=== PATIENT | female | born 1925 | race Caucasian/White ===

== ENCOUNTER 2016-06-12 22:43 | Inpatient (IN) | payer MEDICARE ==
[~2016-06-12] VITALS: Ht 167.6 cm; Wt 117.6 kg
[2016-06-12 22:53] VITALS: BP 146/59; PULSE 61; RESP 16; O2SAT 90
--- NOTE | 2016-06-12 23:17 | ED.REPORT ---
HPI-General Illness Date of Service Jun 12, 2016 ED Provider: Adrian Maldonado MD An 89 year old female with a history of hyponatremia , HTN, chronic vesicular vaginal fistula, and asthma presents to the ED from [facility] via EMS complaining of confusion. Per EMS, the patient had a GLF earlier this evening. When asked where they are, the patient responds that they are at [place]. Per family, the patient has had a wet cough for the last week and has appeared more confused than usual. Per nurse note the patient also complains of dysuria. The patient denies any abdominal pain and denies any pain in general. Nursing Notes Stated Complaint: ACTING DIFFERENT THAN NORMAL Chief Complaint: General Complaint Nursing Notes Reviewed: Yes Allergies: Uncoded Allergies: BEES (Allergy, Severe, WELTS AND SWOLLEN LIPS, 06/12/16) PENICILLIN (Allergy, Unknown, 06/12/16) Scheduled Aspirin (Aspirin) 81 Mg Tablet 81 MG PO DAILY Atenolol (Atenolol) 50 Mg Tablet 50 MG PO DAILY Atorvastatin (Lipitor) 20 Mg Tablet 20 MG PO DAILY Levothyroxine (Levothyroxine) 150 Mcg Tablet 150 MCG PO DAILY Losartan Potassium (Losartan Potassium) 50 Mg Tablet 50 MG PO DAILY Scheduled PRN Furosemide (Furosemide) 20 Mg Tab 20 MG PO DAILY PRN PRN edema General Time Seen by MD: 23:17 Chief Complaint Other (confusion) Hx Obtained From: Patient, Other family..., EMS Arrived By: Ambulance Sudden in Onset?: No Onset Occurred: Onset unknown Symptom Duration: Duration unknown Severity: Current: Moderate Severity: Maximum: Moderate Recent Healthcare: No recent doctor visit Similar Sx Previous: No Past Medical History Past Medical History PNAx2 Reports: Asthma, Hypertension Past Surgical History KELSEY. BSO. Social History Lives at [facility]. Ambulatory Status Independent Review of Systems Denies any pain. Dysuria. Full Review of Systems GI: Denies: Abdominal pain Neurologic: Reports: Confusion Complete sys rev & neg: except as marked. Physical Exam Vital Signs Vital Signs Date Time Temp Pulse Resp B/P Pulse Ox O2 Delivery O2 Flow Rate FiO2 06/12/16 22:53 36.7 61 16 146/59 90 Room Air Initial VS: Reviewed General/Constitutional: Awake Patient is confused and not sure where they are. They think they are at [facility]. They are in mild distress. Head / Eyes: Normocephalic, No nystagmus ENT: Atraumatic, Mucous membranes moist Respiratory / Chest: No rales Chest is clear. Diminished breath sounds. Cardiovascular: Heart rate NL, Regular rhythm, Heart sounds NL, No gallop, No murmurs, No rubs Heart is unremarkable. Abdomen: No guarding, No rebound Skin: Warm, Dry Patient has chronic erythema and chronic edema, nothing acute. vesiculobladder vaginal fistula, and she is leaking. Neurologic: Speech NL Interpretation & Diagnostics Lab Results Interpretation Result Diagram: 06/12/16 2320 06/13/16 0435 Test 06/12/16 23:20 06/13/16 00:27 Osmolality 248 (275-300) Magnesium Level 1.6mg/dL (1.6-2.6) Total Bilirubin 0.4mg/dL (0.0-1.2) Aspartate Amino Transf (AST/SGOT) 20U/L (0-50) Alanine Aminotransferase (ALT/SGPT) 16U/L (0-32) Alkaline Phosphatase 52U/L (25-165) Troponin T 0.010ug/L (0.0-0.011) Pro-B-Type Natriuretic Peptide 226.2pg/mL (0-738) Total Protein 7.1g/dL (6.4-8.4) Albumin 3.8g/dL (3.4-5.0) Triglycerides Level 136mg/dL (0-149) Cholesterol Level 174mg/dL (100-199) LDL Cholesterol, Calculated 97.800mg/dL (0-99) VLDL Cholesterol 27.200mg/dL HDL Cholesterol 49mg/dL (>39) Cholesterol/HDL Ratio 3.55 (0.0-4.4) Thyroid Stimulating Hormone (TSH) 5.490uIU/mL (0.450-4.500) Hold Pyle Top Tube Received (Received) Urine Color [place] (YELLOW) Urine Appearance Slightly cloudy Urine pH Color interference Urine Specific Calcium 1.015 (1.003-1.035) Urine Protein Color interferencemg/dL Urine Glucose (UA) Color interferencemg/dL Urine Ketones Color interferencemg/dL Urine Occult Blood Color interference Urine Nitrite Color interference Urine Bilirubin Color interference Urine Urobilinogen Color interferencemg/dL Urine Leukocyte Esterase Color interference Urine RBC >50/hpf (0-2) Urine WBC 11-50/hpf (0-5) Urine Epithelial Cells Many/hpf (NONE-MOD) Urine Crystals None seen (NONE SEEN) Urine Bacteria Many/hpf (NONE-FEW) Urine Hyaline Casts None/lpf (NONE) Urine Granular Casts None seen (NONE SEEN) Urine Waxy Casts None seen (NONE SEEN) Urine Red Blood Cell Casts None seen (NONE SEEN) Urine White Blood Cell Casts None seen (NONE SEEN) Urine Mucus None seen (None Seen) Urine Trichomonas None seen (NONE SEEN) Urine Yeast None (NONE SEEN) Urinalysis Comment None Urine Culture Reflexed Indicated ECG Interpretation ECG Interpretation: Rate is 63. Sinus Rhythm. Time: 11:52 Interpreted by: ED physician X-Ray Chest Interpretation Chest Xray Interpretation: IMPRESSION: No Acute 06/12/2016, 2329 Interpretation / Wet Read by: Wet read ED physician CT Head Interpretation CONCLUSION: Atrophy with chronic small vessel ischemic changes. No acute intracranial abnormality. Signed by Rah Bonner M.D. 06/13/2016, 0022. Re-Eval/Medical Decision Med Decision/Clinical Course 89-year-old presents with altered mental status and is found to be markedly hyponatremic. Despite the cough, there is no particular evidence of pneumonia on the x-ray. She does have a history of asthma, and her cough is more likely related to bronchospasm than pneumonia. Admitted now for sodium replenishment and further evaluation. Confirmed DNR/DNI status with family. They do want readily reversible metabolic problems reversed, including antibiotics if need be. Source of Hx: Old records, EMS Time of Eval: 23:22 Re-Evaluation/Progress Note: Rechecked patient and explained plan to do tests. Time of Eval: 00:30 Re-Evaluation/Progress Note: Rechecked patient, explained test results, diagnosis, and plan for admission to the hospital. Patient understands and agrees with the plan. All questions addressed. Consultation : Referral / Consult Name: Artem De León MD Consulted With: Hospitalist Call Returned at: 00:34 Note: Discussed patient case with Dr. De León who confirms that remote Tely is ok. Counseled Regarding: Diagnosis, Lab results, Need for admission Discharge & Departure Shift Change Sign-Out Response to Therapy: Improved Primary Impression: Hyponatremia Additional Impression: Altered mental status Altered mental status type: delirium Qualified Code: R41.0 - Disorientation , unspecified Disposition: ADMITTED TO HOSPITAL Discharge Condition All VS Reviewed: Yes Condition: Improved Referrals: Vi Chapa MD (PCP) [facility] Scribe Attestation Portions of this note were transcribed by Porfirio England. Dr. Joel Cano personally performed the history, physical exam and medical decision-making; I reviewed and confirmed the accuracy of the information in the transcribed note. Signed by: Aly Ramirez, 06/13/2016616. copies to: [facility]; Vi Chaap MD, Christopher W MD Jun 12, 2016 23:17 Porfirio England Jun 12, 2016 23:23 Time of Eval: 00:30 Re-Evaluation/Progress Note: Rechecked patient, explained test results, diagnosis, and plan for admission to the hospital. Patient understands and agrees with the plan. All questions addressed. Consultation : Referral / Consult Name: Artem De León MD Consulted With: Hospitalist Call Returned at: 00:34 Note: Discussed patient case with Dr. De León who confirms that remote Tely is ok. Counseled Regarding: Diagnosis, Lab results, Need for admission Discharge & Departure Primary Impression: Hyponatremia Disposition: ADMITTED TO HOSPITAL Discharge Condition All VS Reviewed: Yes Condition: Improved Referrals: Vi Chapa MD (PCP) [facility]) Scribe Attestation Portions of this note were transcribed by Porfirio England. Dr. Joel Cano personally performed the history, physical exam and medical decision-making; I reviewed and confirmed the accuracy of the information in the transcribed note. Signed by: Aly Ramirez, 06/13/201617. copies to: [facility]; Vi Chapa MD, Christopher W MD Jun 12, 2016 23:17 Porfirio Engalnd Jun 12, 2016 23:23 Discharge & Departure Primary Impression: Hyponatremia Disposition: ADMITTED TO HOSPITAL Discharge Condition All VS Reviewed: Yes Condition: Improved Referrals: Vi Chapa MD (PCP) [facility]) Scribe Attestation Portions of this note were transcribed by Porfirio England. Dr. Joel Cano personally performed the history, physical exam and medical decision-making; I reviewed and confirmed the accuracy of the information in the transcribed note. Signed by: Aly Ramirez, 06/13/2016 0029. copies to: [facility]; Vi Chapa MD, Christopher W MD Jun 12, 2016 23:17 Porfirio England Jun 12, 2016 23:23
[2016-06-12 23:27] LABS: BASOPHILS % (AUTO) 0.4 % (0-3); EOSINOPHILS % (AUTO) 0.8 % (0-5); MONOCYTES % (AUTO) 10.3 % (4-12); Mean Corpuscular Hemoglobin 30.2 pg (27.0-35.0); NEUTROPHILS % (AUTO) 66.7 % (40-74); Platelet Count 277 bil/L (150-400)
[2016-06-13] VITALS (9 sets, daily range): BP systolic 133–185; BP diastolic 58–82; PULSE 56–70; RESP 14–22; O2SAT 91–96
[2016-06-13 00:23] LABS: TROPONIN T 0.01 ug/L (0.0-0.011)
[2016-06-13] MEDS ORDERED: 0.9% Sodium Chloride 1,000 ML IV ONE (00:35)
[2016-06-13] MEDS ORDERED: 0.9% Sodium Chloride 1,000 ML IV SCH ×3 (00:36→14:02)
[2016-06-13 00:37] LABS: APPEARANCE,URINE SLIGHTLY CLOUDY (CLEAR,HAZY); COLOR,URINE ORANGE (YELLOW); OCCULT BLOOD,URINE COLOR INTERFERENCE (NEGATIVE); PH,URINE COLOR INTERFERENCE (5.0-8.0); UROBILINOGEN,URINE COLOR INTERFERENCE mg/dL (NORMAL)
[2016-06-13] MEDS ORDERED: Ondansetron 2 mg/mL 2 mL Inj IVPUSH PRN ×2 (00:40)
[2016-06-13] MEDS ORDERED: Alum-Mag Hydrox-Simeth 30 mL Suspension PO PRN (00:40)
--- NOTE | 2016-06-13 01:43 | PCM.HPMED ---
Subjective Date of Service Jun 13, 2016 Primary Provider: Admitting Physician: Artem De León MD Primary Care Physician: Carey Martinez DO Attending Physician: Artem De León MD Admit Status: From the Emergency Department Chief Complaint: Altered mental status, generalized weakness History of Present Illness: Patient is an 89-year-old female with a history of colovaginal fistula with recurrent UTIs, hypertension, hyperlipidemia, hypothyroidism, depression and prior hyponatremia associated to hydrochlorothiazide who presented to the ED via EMS from [facility] with the complaint of worsening confusion and generalized weakness for past 1-2 weeks. History obtained from mostly from the patient's and son due to patient condition. Per the patient's she has had a persistent, non-productive cough for the past week and has been more confused than usual. He states that they were doing exercises at home earlier today when the patient had a ground level fall. He states that she has been eating and drinking okay but complaining of painful urination, increased urinary frequency and general malaise. Huy endorses multiple sick contacts recently between family and fellow residents at [place] but deny fever, chills, nausea, vomiting, diarrhea, hematuria or bloody stools. In the ED, vitals patient was afebrile with a temp 36.7C, BP 146/59, HR 61, RR 16, SpO2 90% on room air. Labs significant for sodium 115, potassium 4.4, chloride 76, bicarb 23, BUN 15, creatinine 0.65, serum glucose 128, calcium 9.1 , magnesium 1.6, negative troponin, proBNP 226.2. UA urine specific gravity 1.015, 11-50 wbc, many bacteria, color interference for pH/protein/glucose/ ketones/occult blood/nitrite/ and leukocyte esterace. Urine culture pending. EKG - NSR with rate 63. Chest Xray with no acute process, CT head showing atrophy with chronic small vessel ischemic changes, no acute intracranial abnormality. Review of Systems: A comprehensive review of systems was conducted with the patient and found to be negative except as above in the History of Present Illness Allergies Uncoded Allergies: BEES (Allergy, Severe, WELTS AND SWOLLEN LIPS, 06/12/16) PENICILLIN (Allergy, Unknown, 06/12/16) Home Medications Aspirin 81mg PO daily Atenolol 50mg PO daily Furosemide 20mg PO daily Levothyroxine 150mcg PO daily Losartan 50mg PO daily 0.4mg SL nitro q5min, prn for chest pain Albuterol 90mcg prn for shortness of breath PMH Pneumonia x2 Recurrent UTIs Asthma Hypertension Hyperlipidemia Hyponatremia Colovaginal fistula unknown etiology Benign cystadenoma left voary Depression Nonhodkins lyumpohma 2006 Hypothyroidism Surgical History Hysterectomy Unilateral salpingooopherectomy Appendectomy Tonsillectomy Adenoidectomy Mastoid surgery Knee replacement Carpal tunnel release Cataracts Family History Father- emphysema, stroke Mother stroke Social History Hx Alcohol Use: No Hx Substance Use: No Smoking Status: Never Smoker Living Arrangement: with Family Assisted Living Exam Vital Signs Vital Sign - Last Date Time Temp Pulse Resp B/P Pulse Ox O2 Delivery O2 Flow Rate FiO2 06/12/16 22:53 36.7 61 16 146/59 90 Room Air Intake and Output 06/12/16 06/12/16 06/13/16 Cumulative From/Thru 14:59 22:59 06:59 06/12/16 22:53 - 06/13/16 00:49 Intake Total 1000 ml 1000 ml Balance 1000 ml 1000 ml Intake IV Total 1000 ml 1000 ml Exam General: Elderly, ill-appearing female in no acute distress, cooperative but minimally interactive. HEENT: Normocephalic, atraumatic. PERRLA, conjunctivae pale, no scleral icterus. Oropharynx free of erythema and cobble stoning with dry mucosa. Neck: No jugular venous distension. No bruits. No lymphadenopathy or thyromegaly. Cardiovascular: Regular rate and rhythm with no murmurs, rubs, or gallops appreciated Pulmonary: Poor respiratory effort, lung sounds coarse but mostly clear to auscultation bilaterally with no crackles, wheezes, or rhonchi. Abdomen: Bowel tones present. Soft, obese, nontender, nondistended. No hepatosplenomegaly or masses appreciated. Extremities: Cool, dry, pulses equal and intact bilaterally. No clubbing, cyanosis, or edema Skin: Cool, decreased turgor, and normal texture; no rash, ulcers, or subcutaneous nodules appreciated. Neurological: Difficult to asses due to patient cooperation, somewhat somnolent but easily aroused. No focal neurological deficits. Lab and Diagnostics Labs Laboratory Tests Test 06/12/16 23:20 06/13/16 00:27 White Blood Count 7.1th/mm3 (3.8-10.1) Red Blood Count 4.01mil/mm3 (3.90-5.20) Hemoglobin 12.1g/dL (12.0-15.6) Hematocrit 34.9% (35.0-46.0) Mean Corpuscular Volume 87.0fL (81-100) Mean Corpuscular Hemoglobin 30.2pg (27.0-35.0) Mean Corpuscular Hemoglobin Concent 34.7% (32.0-37.0) Red Cell Distribution Width 12.1% (12.3-15.4) Platelet Count 277bil/L (150-400) Neutrophils (%) (Auto) 66.7% (40-74) Lymphocytes (%) (Auto) 21.2% (14-46) Monocytes (%) (Auto) 10.3% (4-12) Eosinophils (%) (Auto) 0.8% (0-5) Basophils (%) (Auto) 0.4% (0-3) Sodium Level 115mEq/L (134-144) Potassium Level 4.4mEq/L (3.5-5.2) Chloride Level 76mEq/L (97-108) Carbon Dioxide Level 23mmol/L (18-29) Blood Urea Nitrogen 15mg/dL (8-27) Creatinine 0.65mg/dL (0.57-1.00) Estimat Glomerular Filtration Rate 123mL/min (>59) Glucose Level 128mg/dL (60-99) Osmolality 248 (275-300) Calcium Level 9.1mg/dL (8.5-10.1) Magnesium Level 1.6mg/dL (1.6-2.6) Total Bilirubin 0.4mg/dL (0.0-1.2) Aspartate Amino Transf (AST/SGOT) 20U/L (0-50) Alanine Aminotransferase (ALT/SGPT) 16U/L (0-32) Alkaline Phosphatase 52U/L (25-165) Troponin T 0.010ug/L (0.0-0.011) Pro-B-Type Natriuretic Peptide 226.2pg/mL (0-738) Total Protein 7.1g/dL (6.4-8.4) Albumin 3.8g/dL (3.4-5.0) Triglycerides Level 136mg/dL (0-149) Cholesterol Level 174mg/dL (100-199) LDL Cholesterol, Calculated 97.800mg/dL (0-99) VLDL Cholesterol 27.200mg/dL HDL Cholesterol 49mg/dL (>39) Cholesterol/HDL Ratio 3.55 (0.0-4.4) Thyroid Stimulating Hormone (TSH) 5.490uIU/mL (0.450-4.500) Hold Pyle Top Tube Received (Received) Urine Color [place] (YELLOW) Urine Appearance Slightly cloudy Urine pH Color interference Urine Specific [place] 1.015 (1.003-1.035) Urine Protein Color interferencemg/dL Urine Glucose (UA) Color interferencemg/dL Urine Ketones Color interferencemg/dL Urine Occult Blood Color interference Urine Nitrite Color interference Urine Bilirubin Color interference Urine Urobilinogen Color interferencemg/dL Urine Leukocyte Esterase Color interference Urine RBC >50/hpf (0-2) Urine WBC 11-50/hpf (0-5) Urine Epithelial Cells Many/hpf (NONE-MOD) Urine Crystals None seen (NONE SEEN) Urine Bacteria Many/hpf (NONE-FEW) Urine Hyaline Casts None/lpf (NONE) Urine Granular Casts None seen (NONE SEEN) Urine Waxy Casts None seen (NONE SEEN) Urine Red Blood Cell Casts None seen (NONE SEEN) Urine White Blood Cell Casts None seen (NONE SEEN) Urine Mucus None seen (None Seen) Urine Trichomonas None seen (NONE SEEN) Urine Yeast None (NONE SEEN) Urinalysis Comment None Urine Culture Reflexed Indicated Microbiology 06/13/16 Urine Culture, Received Pending Result Diagram: 06/12/16 2320 06/12/16 2320 Microbiology Urine culture pending X-Rays, CTs and MRIs Chest Xray (06/13/16)- No Acute cardiopulmonary process. Official radiology read pending at time of admission. CT HEAD (06/13/16)- CONCLUSION: Atrophy with chronic small vessel ischemic changes. No acute intracranial abnormality. Signed by Rah Bonner M.D. 06/13/2016, 0022. 12-lead ECG NSR with rate 63, no acute ST changes. Assessment & Plan 89 y/o female with a history of colovaginal fistula with recurrent UTIs, hypertension, hyperlipidemia, hypothyroidism, depression and prior hyponatremia associated to hydrochlorothiazide who presented to the ED via EMS from [facility] with the complaint of confusion and generalized weakness. Admitted for hyponatremia, altered mental status and UTI. 1. Hyponatremia, unknown chronicity, present on admission. Active. -Sodium 115, pt clinically appears hypovolemic. CT head showing atrophy and chronic small vessel ischemic changes, no cerebral edema. Likely secondary to dehydration, UTI, and diuretic use. -Serum osmolality is low, 248 and BUN to creatinine ratio < 20:1 at 18.9 -Urine osmolality and urine sodium, are pending. -TSH 5.49, pt w/hx of hypothyroidism on levothyroxine. -Lipid panel unremarkable -Continue IVFs, serial BMPs q4h -Hold home furosemide duet to active fluid resuscitation 2. Altered mental status, present on admission. Active. -Likely secondary to #[address] head w/o acute intracranial abnormality. -Continue IVFs as above, and antibiotics -Urine studies including osmolality, sodium and culture pending. 3. Probable UTI, present on admission, Active. -Pt with hx of colovaginal fistula of unknown etiology and recurrent UTIs. Formerly on daily prophylactic Bactrim. Not on antibiotics now but per the family has been taking pyridium and endorse severe dysuria. -UA in the ED significant for 11-50 wbc, many bacteria, and color interference for pH/protein/glucose/ketones/occult blood/nitrite/ and leukocyte esterace -Urine culture pending -Start IV ceftriaxone -IV morphine 1mg q6h prn for pain 4. Chronic hypertension, present on admission. Active. -Hypertensive on admission with SBP in the 140s-low 180s, likely secondary to pain and hypovolemia. -Continue home atenolol, aspirin -Held Losartan for #1 -Hold furosemide due to active fluid resuscitation 5. Chronic hyperlipidemia, present on admission. Presumed stable. -Pt not taking statin -Lipid panel unremarkable 6. Chronic hypothyroidism, present on admission. Presumed stable. -Check TSH, free T4 -Continue home levothyroxine, reevaluate pending lab results 7. Hx of Asthma, present on admission. Presumed stable -Continue home albuterol prn 8. Hx of depression, present on admission. Presumed stable. -Difficult to asses secondary to patient's altered mental status -Per the family, patient not currently taking medication and mood stable. -Continue to monitor. PRN: Acetaminophen-fever/headache/mild/moderate pain Antiemetics, as needed Bowel regimen, as needed. Disposition: Patient admitted under inpatient status with expected length of stay > 2 midnights for severity of present symptoms, complexities of treatment plan and risk for adverse event Pain Evaluation: Adequate Pain Control GI Prophylaxis: Not indicated VTE Prophylaxis Indicated: Meets Criteria for Anticoag Therapy VTE Prophylaxis: Sub-Q Enoxaparin Resuscitation Status: DNR/DNI:Do Not Resuscitate/Intubate Attending Statement The patient was seen and examined together with Dr. Cortés on 06/13/2016 and I agree with the history, exam and plan as outlined in the note above. Devika Cortés DO Jun 13, 2016 01:43 Artem De León MD Jun 13, 2016 05:24 VTE Prophylaxis: Sub-Q Enoxaparin Resuscitation Status: DNR/DNI:Do Not Resuscitate/Intubate Devika Cortés DO Jun 13, 2016 01:43
[2016-06-13] MEDS ORDERED: ASPI-973 PO (02:03)
[2016-06-13] MEDS ORDERED: ATEN50TA PO (02:03)
[2016-06-13] MEDS ORDERED: LOSA50TA37 PO (02:03)
[2016-06-13] MEDS ORDERED: FUR20 PO (02:07)
[2016-06-13] MEDS ORDERED: LEVO150T5 PO (02:07)
[2016-06-13] MEDS ORDERED: ATOR20TA PO (02:07)
[2016-06-13] MEDS ORDERED: HYDROmorphone 0.5 mg/0.5 mL iSecure Syringe IVPUSH ONE (03:15)
[2016-06-13 05:22] LABS: OSMOLALITY, URINE 163 mOs/kH2O (250-1200)
--- NOTE | 2016-06-13 05:29 | NUR ---
Admit Pt arrived to [facility] room 1025 from ER at 0150. Pt moved with slider board to bed. NS bolus from ER finishing through IV. Pt alert/oriented x2 not to time or place. Pt on RA, CPOx placed with O2 sats 94%. Admission questions completed with as pt is somewhat confused, very NULATO. Med rec completed with med containers (family to take containers home). Breanna alarm placed for high fall risk. UA collected via straight cath since pt has been incontinent, urine is orange d/t pyridium. Straight cath drained 600 ml of orange urine. Pt complaining of vaginal pain but unable to give pain a number, 5 on feldt score. paged and pt was given 0.5 mg IV dilaudid very slowly over 10 min. MD also made aware of increased BP 170/62 and contributed mostly to pain, BP this am was 133/58. Pt has been restless and turning self in bed. Nasal micro influenza and Viral resp PCR sent, Pt placed on droplet precaution due to rule out and active cough. Continue close monitoring. Addendum: 06/13/16 at 0730 by GLENN ZAMUDIO RN made aware of critical sodium levels 118 at 0550.
[2016-06-13] MEDS: cefTRIAXone Inj 1,000 MG in Dextrose 5% Minibag Plus 50 ML IV SCH (05:44)
[2016-06-13] MEDS: Nystatin 100,000 Unit/Gm 15 Gm Powder TOPICAL SCH ×3 (05:45→20:30)
[2016-06-13 07:27] LABS: BASOPHILS % (AUTO) 0.3 % (0-3); EOSINOPHILS % (AUTO) 2.6 % (0-5); Mean Corpuscular Hemoglobin 30.7 pg (27.0-35.0); Mean Corpuscular Volume 85.2 fL (81-100); Platelet Count 227 bil/L (150-400)
--- NOTE | 2016-06-13 07:59 | DRSVH ---
PROCEDURE: X-RAY CHEST ONE VIEW, PORTABLE ([id number]) INDICATIONS: cough/wheezy, CONFUSION TECHNIQUE: One view of the chest was acquired. COMPARISON: [facility], CR, XR CHEST 2VW, 03/15/2016, 15:35. FINDINGS: Surgical changes and devices: None. Lungs and pleura: No pleural effusions or pneumothorax. Lungs are clear. Diffuse interstitial dise ase and scarring, without definite interval change Mediastinum: Mediastinal contours appear normal. Heart size is normal. Bones and chest wall: No suspicious bony lesions. Overlying soft tissues appear unremarkable. IMPRESSION: No acute disease. Diffuse/interstitial changes as before. Dictated by: Chinedu Hendricks M.D. on 06/13/2016 at 7:57 Approved by: Chinedu Hendricks M.D. on 06/13/2016 at 7:58
--- NOTE | 2016-06-13 08:05 | DRSVH ---
PROCEDURE: CT BRAIN WITHOUT CONTRAST ([id number]) INDICATIONS: altered mental status TECHNIQUE: Noncontrast 4.5 mm thick angled axial sections acquired from the foramen magnum to the vertex, with c oronal reformats. COMPARISON: None. FINDINGS: Image quality: Excellent. CSF spaces: Basal cisterns are patent. No extra-axial fluid collections. The ventricles are symmet chalo in size and shape. Brain: No intracranial bleeds or masses. There is moderate cerebral volume loss for age, with resul tant ventricular and sulcal prominence. There are moderate to severe periventricular and deep white matter chronic small vessel ischemic changes. There is intracranial internal carotid artery atherosc lerosis. Skull and face: Calvarium and visualized facial bones appear intact, without suspicious lesions. Po ssible left inner ear surgery. Sinuses: Visualized sinuses and mastoids are clear. IMPRESSION: 1. No acute intracranial abnormalities. 2. Cerebral volume loss and chronic microvascular ischemic changes. No significant discrepancy with the assistant shift supervisor radiology preliminary report. Dictated by: Chata Fields M.D. on 06/13/2016 at 8:01 Approved by: Chata Fields M.D. on 06/13/2016 at 8:04
--- NOTE | 2016-06-13 08:06 | NUR ---
Respiratory virus Microbiology called at 0804 hrs to inform me that pt is positive for metapneumovirus. Cook page sent to hospitalist to convey this information.
--- NOTE | 2016-06-13 08:38 | NUR ---
Sodium level Lab called at 0825 to inform me that pt's Na+ is 119 this a.m. Arjun page sent to hospitalist with this information.
--- NOTE | 2016-06-13 12:45 | NUR ---
Activity / Pain Pt was able to get up to the bathroom using a FWW with assistance this a.m. Later pt c/o low back pain that was 8/10. Administered 1 mg IVP morphine and assisted pt onto her left side. Pt stated this helped and her pain was almost completely gone. Care continues.
--- NOTE | 2016-06-13 13:22 | NUR ---
Sodium level Lab called with new serum Na+ results of 118 at 1318 hrs. Cook page sent to hospitalist with this information.
--- NOTE | 2016-06-13 15:46 | NUR ---
Lost IV access Was called to pt's room at approximately 1530 because pt had pulled out her IV and pulled off her pulse oximeter and gown as well. Pt confused. Reoriented pt. RADIO STATION MANAGER changed the bed, to the pt to the toilet,and gave pt a bed bath. Pt returned to bed. Piatt alarm on for safety. Care continues. Addendum: 06/13/16 at 1626 by AYAKA MILLER RN Two unsuccessful attempts made to restart pt's IV. Called IV therapy for assistance.
[2016-06-13] MEDS ORDERED: Lidocaine 1%-Epi 1:100,000 20 mL Inj ONE (16:11)
--- NOTE | 2016-06-13 16:25 | NUR ---
Social Work-attempted initial assessment: Data:EMR Reviewed. Pt is a 89 y/o female who was admitted on 06/13/16 for altered mental status per H&P. Pt's insurance is [facility] and [employer] and PCP is oHpe Martinez DO. EMR Reviewed. Pt's readmission score is 4-high risk. Pt comes from [place] assisted living. SW attempted to see pt at bedside, Pt requested to have SW call her . SW attempted to reach , no answer. SW to follow up again tomorrow. Assessment:pt who resides at [facility]. Plan:SW to follow up with assessment tomorrow. Pt resides at [facility]. SW will continue to follow. CHELSEA You
[2016-06-13] MEDS: 0.9% Sodium Chloride 1,000 ML IV SCH (21:00)
--- NOTE | 2016-06-14 02:52 | NUR ---
PAIN/ACTIVITY: Early during first assessment pt. c/o back pain. Medicated with 1 mg of IV Morphine, helpful, no other c/o pain. Pt. has been up to the bathroom several times tonight to void. No BM yet. Pt. is a high risk for falling, has the Breanna alarm on and the bed alarm on as well. Needs one person assist and the FWW for ambulation, unsteady on her feet. Pt. does not call for assist. Does not know how to use the call light. Alert but forgetful. Refused to wear her hospital gown during the night. No other issues. On going care.
[2016-06-14] MEDS: cefTRIAXone Inj 1,000 MG in Dextrose 5% Minibag Plus 50 ML IV SCH (04:37)
[2016-06-14 05:02] VITALS: BP 173/72; PULSE 80; RESP 20; O2SAT 94
[2016-06-14] MEDS: Albuterol-Ipratropium 3 mL Inhalation Solution NEB PRN ×2 (05:14→08:05)
[2016-06-14 05:16] VITALS: PULSE 85; RESP 18; O2SAT 94
[2016-06-14 08:07] VITALS: PULSE 82; RESP 20; O2SAT 94
[2016-06-14] MEDS: Nystatin 100,000 Unit/Gm 15 Gm Powder TOPICAL SCH ×2 (09:11→20:30)
[2016-06-14] MEDS: 0.9% Sodium Chloride 1,000 ML IV SCH ×2 (09:50→23:16)
[2016-06-14 12:57] VITALS: BP 167/60; PULSE 72; RESP 18; O2SAT 96
--- NOTE | 2016-06-14 13:22 | PCM.PNMED ---
Subjective Date of Service Jun 14, 2016 Subjective Pt remains confused today. She also complains of weakness. No other complaints or concerns at this time. Exam Vital Signs Vital Sign - Last Date Time Temp Pulse Resp B/P Pulse Ox O2 Delivery O2 Flow Rate FiO2 06/14/16 12:57 36.1 72 18 167/60 96 Room Air Intake and Output 06/13/16 06/13/16 06/14/16 Cumulative From/Thru 15:00 23:00 07:00 06/12/16 22:53 - 06/14/16 05:56 Intake Total 1334 ml 400 ml 2734 ml Output Total 500 ml 1245 ml 3380 ml Balance 834 ml -845 ml -646 ml Intake Oral 580 ml 400 ml 980 ml IV Total 754 ml 1754 ml Output Urine Total 500 ml 1245 ml 3380 ml # Bowel Movements 0 0 Exam GENERAL: NAD, Pt laying in bed comfortably HEENT: AT/NC, PERRLA, EOMI, Mucus Membranes are moist CARDIAC: RRR; No M/R/G PULM: CTAB; No wheezes or rhonchi bilaterally ABD: Soft, Nontender, Nondistended, Positive bowel sounds in all quadrants, No Hepatosplenomegaly appreciated EXT: No C/C/E; No calf tenderness bilaterally SKIN: Warm, Dry, [place], and Intact NEURO: Alert and oriented x1; Following some commands PSYCH: Normal mood and affect IVs and Medications Medications Reviewed: Medications were reviewed in detail Lab and Diagnostics Result Diagram: 06/13/16 0710 06/13/162104 Microbiology Urine culture pending X-Rays, CTs and MRIs Chest Xray (06/13/16)- No Acute cardiopulmonary process. Official radiology read pending at time of admission. CT HEAD (06/13/16)- CONCLUSION: Atrophy with chronic small vessel ischemic changes. No acute intracranial abnormality. Signed by Rah Bonner M.D. 06/13/2016, 0022. 12-lead ECG NSR with rate 63, no acute ST changes. Assessment & Plan 89 y/o female with a history of colovaginal fistula with recurrent UTIs, hypertension, hyperlipidemia, hypothyroidism, depression and prior hyponatremia associated to hydrochlorothiazide who presented to the ED via EMS from [facility] with the complaint of confusion and generalized weakness. Admitted for hyponatremia, altered mental status and UTI. 1. Hyponatremia, unknown chronicity, present on admission. Active. - Secondary to Hypovolemia - Continue IV Normal Saline for now - Continue to hold Lasix - Repeat BMP - Consider Nephrology consultation depending on next BMP 2. Altered Mental Status - Secondary to acute UTI and Hyponatremia - Treat underlying cause - Monitor closely 3. Acute UTI - Urine culture positive for Klebsiella - Continue IV Rocephin 2 grams daily 4. Essential Hypertension - Continue home Atenolol 5. Hyperlipidemia - Continue home statin therapy 6. Hypothyroidism - Thyroid function normal - Continue Levothyroxine at current dose GI Prophylaxis: Not indicated VTE Prophylaxis: Sub-Q Enoxaparin VTE Mechanical Devices: Intermittant Pneumatic CD Resuscitation Status: DNR/DNI:Do Not Resuscitate/Intubate Ash Bradshaw MD Jun 14, 2016 13:22
--- NOTE | 2016-06-14 15:56 | NUR ---
Social Work- Initial Assessment Data: See Initial Assessment. Pt is a 89 year old female admitted for altered mental status, hyponatremia per H&P. Pt's insurance is [employer] and [employer]. Pt's PCP is Carey Martinez DO. LEIGH spoke with pt at bedside regarding discharge plan, SW role explained. Pt is alert and oriented to date and time, pt is hard of hearing. Pt complaining of "near 10/10" back pain, requested SW alert RN and call her DPOA. SW called DPOA and son Moise who is very involved in pt's care. SW completed the assessment by phone. Pt resides at [facility] with her who assists her with medication management, meals, chores. Pt has [employer] caregiver who comes once per week to assist with showering. [place] walker at [place], does not drive. Pt has no HH or SNF history. Pt's son states that she may have LTC benefits, will follow up with SW. Pt's DPOA on file is peg [employer], . Son requesting quote for [facility] transportation back to [place] at discharge, as pt's does not drive and son has a very high trunk that pt cannot get into. SW to follow up with this quote. Pt to discharge home to [facility] via private pay cabulance. SW will continue to follow. Assessment: Pt who resides in Independent Living and receives assistance from family and bath aide. Plan: Pt to discharge home to [place] [facility] via private pay cabulance. SW to follow up regarding [facility] quote. SW will continue to follow. CHELSEA Fiore Addendum: 06/14/16 at 1556 by JESSICA CRABTREE Amended: Links added.
--- NOTE | 2016-06-14 18:43 | DRSVH ---
PROCEDURE: CT LUMBAR SPINE WITHOUT CONTRAST ([id number]) INDICATIONS: worsening pain TECHNIQUE: Noncontrast 3 mm thick sections acquired from the T12 level to the sacrum. Sagittal and coronal refo rmats were constructed. For radiation dose reduction, the following was used: automated exposure co ntrol. COMPARISON: None. FINDINGS: Image quality: Excellent. Bones: There is grade 1 anterolisthesis of L4 on L5 measuring 3 mm. There is minimal retrolisthesis at L1-L2. No acute vertebral body compression fractures. No suspicious lytic or blastic bony lesion s. Central spinal caliber is of normal overall caliber. No pars defects. There is joint space narr owing along the visualized sacroiliac joints with osteophytosis, subchondral cystic changes, and poonam articular sclerosis. T12-L1: Mild to moderate loss of disc height with a small broad-based disc bulge. There is associate d minimal spinal canal narrowing. There is likely mild right neuroforaminal narrowing with evaluatio n limited on CT. L1-L2: The jaev-mf-gxnthiuo loss of disc height with a small broad-based disc bulge. There is minima l spinal canal narrowing and minimal bilateral neuroforaminal narrowing. L2-L3: Moderate loss of disc height posteriorly with a small broad-based disc bulge. There is mild f acet arthropathy. Findings contribute to mild spinal canal narrowing with mild bilateral neuroforami nal narrowing. L3-L4: Okei-ji-aujyapez loss of disc height with a small broad-based disc bulge. There is mild facet arthropathy as well as ligamentum flavum hypertrophy. The findings contribute to mild spinal canal narrowing with mild bilateral neuroforaminal narrowing. L4-L5: Dtmn-mt-mhhejmdn loss of disc height with vacuum disc phenomenon and a small disc bulge. Ther e is moderate facet arthropathy as well as mild ligamentum flavum hypertrophy. The findings contribu te to moderate spinal canal narrowing with mild to moderate bilateral neuroforaminal narrowing. L5-S1: Moderate loss of disc height with vacuum disc phenomenon and a smaller broad-based disc bulge. There is mild facet arthropathy. There is minimal spinal canal narrowing with severe bilateral christie roforaminal narrowing, right greater than left. Soft tissues: No retroperitoneal masses or hematomas. Visualized aorta is normal in caliber. There is chronic diverticulosis within the visualized colon. IMPRESSION: 1. Multilevel degenerative changes in the lumbar spine as described including severe bilateral neuro foraminal narrowing at L5-S1. Bcfm-jy-whftmfhy bilateral narrowing also demonstrated at L4-5. 2. Multilevel spinal canal narrowing including moderate narrowing at L4-5. 3. Grade one anterolisthesis at L4-5. 4. Bilateral sequelae of sacroiliitis, left greater than right. Dictated by: Ottoniel Arias M.D. on 06/14/2016 at 18:28 Approved by: Ottoniel Arias M.D. on 06/14/2016 at 18:42
--- NOTE | 2016-06-14 19:46 | NUR ---
Back pain Pt c/o back pain throughout day shift. PO Tylenol given q 6hrs. When pt c/o pain 10/10, IV Morphine was given, which lowered her pain to 5/10 and made her drowsy but did not eliminate pain. Pt did report some relief being in the chair versus the bed. MD notified of persistent pain and CT of back was ordered. Awaiting results. MD aware of continued pain and DC'd Morphine to prevent AMS.
[2016-06-14 20:34] VITALS: BP 143/74; PULSE 68; RESP 20; O2SAT 94
--- NOTE | 2016-06-15 01:06 | NUR ---
Back pain Patient continues to complain of back pain at the beginning of shift. K pad has been ordered in hopes to relieve some of the pain. MD notified of this. No additional orders at this time. Before K pad could be set up and applied, patient was asleep and appeared comfortable. Will continue to monitor, and assess need for Tylenol PO and K pad for pain. Addendum: 06/15/16 at 0502 by CAROL QUINTANILLA RN As the night progressed patient started to wake up more frequently complaining of back pain. PO tylenol was given and upon reassessment patient was sleeping and appeared comfortable. However, patient continues to wake frequently complaining of back pain, then shortly after falls back to sleep. Will share this with day shift, in hopes for a medication regimen change.
[2016-06-15 04:45] VITALS: BP 173/71; PULSE 62; RESP 18; O2SAT 96
[2016-06-15] MEDS: cefTRIAXone Inj 1,000 MG in Dextrose 5% Minibag Plus 50 ML IV SCH (04:53)
[2016-06-15 09:00] LABS: BASOPHILS % (AUTO) 0.4 % (0-3); EOSINOPHILS % (AUTO) 1.3 % (0-5); MONOCYTES % (AUTO) 10.9 % (4-12); Mean Corpuscular Hemoglobin 30.5 pg (27.0-35.0); Mean Corpuscular Volume 88.6 fL (81-100); NEUTROPHILS % (AUTO) 54.2 % (40-74); Platelet Count 270 bil/L (150-400)
[2016-06-15] MEDS: Nystatin 100,000 Unit/Gm 15 Gm Powder TOPICAL SCH ×2 (11:50→20:30)
--- NOTE | 2016-06-15 12:08 | PCM.PNMED ---
Subjective Date of Service Jun 15, 2016 Subjective Pt states she is feeling much better this morning and her son, whom is at bedside reports his mother appears more like her normal self today. Pt states she continues to feel weak, but this is improved overall and her son reports her mentation is almost back to baseline. No other complaints or concerns at this time. Exam Vital Signs Vital Sign - Last Date Time Temp Pulse Resp B/P Pulse Ox O2 Delivery O2 Flow Rate FiO2 06/15/16 04:45 36.2 62 18 173/71 96 Room Air Intake and Output 06/14/16 06/14/16 06/15/16 Cumulative From/Thru 15:00 23:00 07:00 06/12/16 22:53 - 06/15/16 06:40 Intake Total 1037 ml 893 ml 4664 ml Output Total 825 ml 1025 ml 5230 ml Balance 212 ml -132 ml -566 ml Intake Oral 268 ml 400 ml 1648 ml IV Total 769 ml 493 ml 3016 ml Output Urine Total 825 ml 1025 ml 5230 ml # Bowel Movements 0 0 0 Exam GENERAL: NAD, Pt laying in bed comfortably HEENT: AT/NC, PERRLA, EOMI, Mucus Membranes are moist CARDIAC: RRR; No M/R/G PULM: CTAB; No wheezes or rhonchi bilaterally ABD: Soft, Nontender, Nondistended, Positive bowel sounds in all quadrants, No Hepatosplenomegaly appreciated EXT: No C/C/E; No calf tenderness bilaterally SKIN: Warm, Dry, [place], and Intact NEURO: Alert and oriented x2-3; Following all commands PSYCH: Normal mood and affect IVs and Medications Medications Reviewed: Medications were reviewed in detail Lab and Diagnostics Result Diagram: 06/15/16 0856 06/15/16 0856 Microbiology Urine culture pending X-Rays, CTs and MRIs Chest Xray (06/13/16)- No Acute cardiopulmonary process. Official radiology read pending at time of admission. CT HEAD (06/13/16)- CONCLUSION: Atrophy with chronic small vessel ischemic changes. No acute intracranial abnormality. Signed by Rah Bonner M.D. 06/13/2016, 0022. 12-lead ECG NSR with rate 63, no acute ST changes. Assessment & Plan 89 y/o female with a history of colovaginal fistula with recurrent UTIs, hypertension, hyperlipidemia, hypothyroidism, depression and prior hyponatremia associated to hydrochlorothiazide who presented to the ED via EMS from [facility] with the complaint of confusion and generalized weakness. Admitted for hyponatremia, altered mental status and UTI. 1. Hyponatremia, unknown chronicity, present on admission. Active. - Improving - Secondary to Hypovolemia - Continue IV Normal Saline for now, but will increase rate to 100 mL/hour - Continue to hold Lasix - Repeat BMP in AM 2. Altered Mental Status - Resolving - Secondary to acute UTI and Hyponatremia - Treat underlying cause - Monitor closely 3. Acute UTI - Urine culture positive for Klebsiella - Continue IV Rocephin 2 grams daily 4. Essential Hypertension - Well controlled - Continue home Atenolol 5. Hyperlipidemia - Continue home statin therapy 6. Hypothyroidism - Thyroid function normal - Continue Levothyroxine at current dose 7. Disposition - Anticipate discharge to home in the next 2-3 days GI Prophylaxis: Not indicated VTE Prophylaxis: Sub-Q Enoxaparin VTE Mechanical Devices: Intermittant Pneumatic CD Resuscitation Status: DNR/DNI:Do Not Resuscitate/Intubate Ash Bradshaw MD Jun 15, 2016 12:08
[2016-06-15] MEDS: 0.9% Sodium Chloride 1,000 ML IV SCH ×3 (12:30→22:30)
[2016-06-15 14:59] VITALS: BP 186/81; PULSE 62; RESP 16; O2SAT 99
--- NOTE | 2016-06-15 15:18 | NUR ---
Social Work- Continued D/C Planning Data: EMR reviewed. Pt is on day 2 of hospitalization for altered mental status, hyponatremia per H&P. Pt is not medically stable, anticipate 1-2 more days. Pt's sodium levels continue to be monitored. SW followed up with pt's son Moise regarding [facility] quote for transportation back to [facility], SW left message. Quote is approximately $55. SW to follow up with son again regarding quote when pt is nearing discharge. No other discharge needs anticipated. Pt to discharge home via private pay cabulance and return home with private pay caregiving when medically stable. SW will continue to follow. Assessment: Pt who has private pay caregiving and family support at home. Plan: SW to update son again of private pay cabulance quote as patient nears discharge. Pt to discharge home via private pay cabulance and return home with private pay caregiving when medically stable. SW will continue to follow. CHELSEA Fiore
--- NOTE | 2016-06-15 17:13 | NUR ---
BP/Activity/Pain Pt with elevated BP of 186/81 this afternoon. notified. Home BP medications resumed. Pt encouraged to ambulated today and has walked two loops around unit. Cough has decreased and back pain has improved. Using recliner to help with foot swelling and back discomfort. Pain adequately controlled with PO Tylenol today.
[2016-06-15 20:10] VITALS: BP 158/63; PULSE 51; RESP 17; O2SAT 94
[2016-06-16 03:44] VITALS: PULSE 62; RESP 20; O2SAT 98
[2016-06-16] MEDS: 0.9% Sodium Chloride 1,000 ML IV SCH ×2 (05:08→18:34)
[2016-06-16] MEDS: cefTRIAXone Inj 1,000 MG in Dextrose 5% Minibag Plus 50 ML IV SCH (05:08)
[2016-06-16 05:45] VITALS: BP 148/66; PULSE 55; RESP 17; O2SAT 95
--- NOTE | 2016-06-16 05:47 | NUR ---
BP/Pain Pt BP improved this shift- 158/63 Pt was crying early in shift, stating her back was "killing her" and rated pain 10/10. Pt was up in chair. Got Pt back to bed, gave PRN tylenol and repositioned with KPad. Pt continued to say she was hurting, requesting pain meds and was crying. Contacted MD and rec'd new order for morphine 2mg IV Q4hrs. Pt rec'd with + effects, able to rouse easily and continued at baseline A/O x2. Pt able to sleep. Pt woke up, using call light to make needs known, ambulated to and tolerated well. PRN morphine given 1 additional time this shift with + effects. IV fluids infusing 100 ml/hr
[2016-06-16 06:46] LABS: BASOPHILS % (AUTO) 0.6 % (0-3); MONOCYTES % (AUTO) 14.3 % (4-12); Mean Corpuscular Hemoglobin 30.7 pg (27.0-35.0); NEUTROPHILS % (AUTO) 40.6 % (40-74); Platelet Count 228 bil/L (150-400)
[2016-06-16 09:09] VITALS: PULSE 58; RESP 20; O2SAT 94
[2016-06-16] MEDS: Nystatin 100,000 Unit/Gm 15 Gm Powder TOPICAL SCH ×2 (09:22→19:55)
--- NOTE | 2016-06-16 10:46 | PCM.PNMED ---
Subjective Date of Service Jun 16, 2016 Subjective Pt states she is "feeling better" today. She has no complaints or concerns at this time. Pt states her weakness is improved. She denies any dysuria or urinary urgency or frequency at present. Exam Vital Signs Vital Sign - Last Date Time Temp Pulse Resp B/P Pulse Ox O2 Delivery O2 Flow Rate FiO2 06/16/16 09:09 58 20 94 Room Air 06/16/16 05:45 36.4 148/66 Intake and Output 06/15/16 06/15/16 06/16/16 Cumulative From/Thru 15:00 23:00 07:00 06/12/16 22:53 - 06/16/16 06:28 Intake Total 1684 ml 1042 ml 7390 ml Output Total 850 ml 750 ml 6830 ml Balance 834 ml 292 ml 560 ml Intake Oral 800 ml 400 ml 2848 ml IV Total 884 ml 642 ml 4542 ml Output Urine Total 850 ml 750 ml 6830 ml # Bowel Movements 0 0 Exam GENERAL: NAD, Pt laying in bed comfortably HEENT: AT/NC, PERRLA, EOMI, Mucus Membranes are moist CARDIAC: RRR; No M/R/G PULM: CTAB; No wheezes or rhonchi bilaterally NEURO: Alert and oriented x2-3; Following all commands PSYCH: Normal mood and affect IVs and Medications Medications Reviewed: Medications were reviewed in detail Lab and Diagnostics Result Diagram: 06/16/16 0600 06/16/16 0600 Microbiology Urine culture pending X-Rays, CTs and MRIs Chest Xray (06/13/16)- No Acute cardiopulmonary process. Official radiology read pending at time of admission. CT HEAD (06/13/16)- CONCLUSION: Atrophy with chronic small vessel ischemic changes. No acute intracranial abnormality. Signed by Rah Bonner M.D. 06/13/2016, 0022. 12-lead ECG NSR with rate 63, no acute ST changes. Assessment & Plan 89 y/o female with a history of colovaginal fistula with recurrent UTIs, hypertension, hyperlipidemia, hypothyroidism, depression and prior hyponatremia associated to hydrochlorothiazide who presented to the ED via EMS from [facility] with the complaint of confusion and generalized weakness. Admitted for hyponatremia, altered mental status and UTI. 1. Hyponatremia - Improving daily - Secondary to Hypovolemia - Continue IV Normal Saline for now at 100 mL/hour - Continue to hold Lasix for now - Repeat BMP in AM 2. Altered Mental Status - Resolved, and pt is back to her baseline mentation per her son - Secondary to acute UTI and Hyponatremia 3. Acute UTI - Urine culture positive for Klebsiella on admission - Continue IV Rocephin 2 grams daily - Repeat UA with culture now 4. Essential Hypertension - Well controlled - Continue home Atenolol 5. Hyperlipidemia - Continue home statin therapy 6. Hypothyroidism - Thyroid function normal - Continue Levothyroxine at current dose 7. Disposition - Anticipate discharge to home in the next 1-2 days GI Prophylaxis: Not indicated VTE Prophylaxis: Sub-Q Enoxaparin VTE Mechanical Devices: Intermittant Pneumatic CD Resuscitation Status: DNR/DNI:Do Not Resuscitate/Intubate Ash Bradshaw MD Jun 16, 2016 10:46
--- NOTE | 2016-06-16 15:02 | NUR ---
Swelling FYI Page sent to MD regarding pts increased bilateral LE edema swelling as well as bilateral hand swelling. Pt is normally on Lasix daily. Urinary output has decreased as well. MD notified. Waiting for pt to void to get UA sample. Care continues
[2016-06-16 15:03] VITALS: BP 144/81; RESP 18; O2SAT 96
--- NOTE | 2016-06-16 16:01 | NUR ---
AKANKSHA signed. Rhiannon Murphy TAR WORKER
--- NOTE | 2016-06-16 16:29 | NUR ---
Social Work- Continued D/C Planning Data: EMR reviewed. Pt is on day 3 of hospitalization for altered mental status, hyponatremia per H&P. Pt is not medically stable, anticipate 1-2 more days. Pt's sodium levels continue to be monitored. LEIGH spoke with pt's son Moise at bedside regarding discharge plan. Moise agreeable to [facility] transportation at discharge. Per RN notes, pt is ambulating in hallway, but pt may benefit from OT evaluation prior to discharge.SW to follow up with MD regarding this. Pt's son requesting home health for pt at discharge, HH choice list provided. Moise has no preference, SW consulted rotating calendar and made referral to [facility] RN, potentially OT. Access given. F2F in folder. Pt to discharge home with [facility] RN, potentially OT via private pay cabulance, return home with private pay caregiving when medically stable. SW will continue to follow. Assessment: Pt who has private pay caregiving and family support at home, who may benefit from HH RN. Plan: Pt to discharge home with HH RN via private pay cabulance and return home with private pay caregiving when medically stable. SW will continue to follow. CHELSEA Fiore
--- NOTE | 2016-06-16 17:42 | NUR ---
Cough / Swelling / SOB Bilateral increased swelling of LE as well as hands. Pt has not been coughing all day and has began to cough recently; Moist but nonproductive. Also SOB when ambulating which was not the case prior this morning. Output slightly decreased. MD aware Plan on 2 view Chest Xray now. Care continues
[2016-06-16 18:02] LABS: APPEARANCE,URINE CLEAR (CLEAR,HAZY); COLOR,URINE YELLOW (YELLOW)
[2016-06-16 18:03] LABS: OCCULT BLOOD,URINE NEGATIVE (NEGATIVE); UROBILINOGEN,URINE NORMAL (NORMAL)
[2016-06-16 19:38] VITALS: BP 186/73; PULSE 64; RESP 16; O2SAT 97
--- NOTE | 2016-06-16 19:40 | DRSVH ---
PROCEDURE: X-RAY CHEST, TWO VIEWS ([id number]) INDICATIONS: r/o fluid in lungs TECHNIQUE: 2 views of the chest were acquired. COMPARISON: [facility], CR, XR CHEST 1VW (PORTABLE), 06/12/2016, 23:09. FINDINGS: Surgical changes and devices: None. Lungs and pleura: No pleural effusions or pneumothorax. Lungs are clear of acute disease other than possible minimal amount of subsegmental atelectasis at the right base.. Mediastinum: Mediastinal contours are normal. Heart size is normal. Bones and chest wall: No suspicious bony abnormalities. Soft tissues appear unremarkable. IMPRESSION: No evidence for pleural fluid is present. Dictated by: Bradford Thurman M.D. on 06/16/2016 at 19:39 Approved by: Bradford Thurman M.D. on 06/16/2016 at 19:39
[2016-06-17] VITALS (7 sets, daily range): BP systolic 139–183; BP diastolic 63–85; PULSE 56–65; RESP 15–20; O2SAT 94–100
[2016-06-17] MEDS: 0.9% Sodium Chloride 1,000 ML IV SCH (00:41)
[2016-06-17] MEDS: cefTRIAXone Inj 1,000 MG in Dextrose 5% Minibag Plus 50 ML IV SCH (04:44)
--- NOTE | 2016-06-17 06:07 | NUR ---
Cough/Swelling/SOB Pt continued to have increase in moist non productive cough, LCTA but coarse, edema 3+ BLLE, edema to right hand. Pt SOB on exertion. CXR results negative. Paul PUENTES, ordered decrease in NS to 45ml/hr for continued treatment of hyponatremia. Pt tolerating.
[2016-06-17 06:31] LABS: BASOPHILS % (AUTO) 0.6 % (0-3); EOSINOPHILS % (AUTO) 1.4 % (0-5); MONOCYTES % (AUTO) 12.1 % (4-12); Mean Corpuscular Hemoglobin 30.4 pg (27.0-35.0); Mean Corpuscular Volume 88.8 fL (81-100); NEUTROPHILS % (AUTO) 53.7 % (40-74); Platelet Count 235 bil/L (150-400)
[2016-06-17] MEDS: Nystatin 100,000 Unit/Gm 15 Gm Powder TOPICAL SCH ×2 (10:01→21:47)
[2016-06-17] MEDS: Polyethylene Glycol (PEG) 17 Gm Powder PO PRN (10:01)
--- NOTE | 2016-06-17 10:18 | PCM.PNMED ---
Subjective Date of Service Jun 17, 2016 Subjective Pt doing well. She states she is feeling slightly weaker today. She denies any cough or shortness of breath. No other complaints or concerns at this time. Exam Vital Signs Vital Sign - Last Date Time Temp Pulse Resp B/P Pulse Ox O2 Delivery O2 Flow Rate FiO2 06/17/16 07:39 36.1 56 20 172/74 94 Room Air Intake and Output 06/16/16 06/16/16 06/17/16 Cumulative From/Thru 15:00 23:00 07:00 06/12/16 22:53 - 06/17/16 06:12 Intake Total 2007 ml 736 ml 07873 ml Output Total 950 ml 1000 ml 8780 ml Balance 1057 ml -264 ml 1353 ml Intake Oral 772 ml 3620 ml IV Total 1235 ml 736 ml 6513 ml Output Urine Total 950 ml 1000 ml 8780 ml # Bowel Movements 0 Exam GENERAL: NAD, Pt laying in bed comfortably HEENT: AT/NC, PERRLA, EOMI, Mucus Membranes are moist CARDIAC: RRR; No M/R/G PULM: CTAB; No wheezes or rhonchi bilaterally ABD: Soft, Nontender, Nondistended, Positive bowel sounds in all quadrants, No Hepatosplenomegaly appreciated EXT: No C/C/E; No calf tenderness bilaterally SKIN: Warm, Dry, [place], and Intact NEURO: Alert and oriented x2; Following all commands PSYCH: Normal mood and affect IVs and Medications Medications Reviewed: Medications were reviewed in detail Lab and Diagnostics Result Diagram: 06/17/16 0610 06/17/16 0610 Microbiology Urine culture pending X-Rays, CTs and MRIs Chest Xray (06/13/16)- No Acute cardiopulmonary process. Official radiology read pending at time of admission. CT HEAD (06/13/16)- CONCLUSION: Atrophy with chronic small vessel ischemic changes. No acute intracranial abnormality. Signed by Rah Bonner M.D. 06/13/2016, 0022. 12-lead ECG NSR with rate 63, no acute ST changes. Assessment & Plan 89 y/o female with a history of colovaginal fistula with recurrent UTIs, hypertension, hyperlipidemia, hypothyroidism, depression and prior hyponatremia associated to hydrochlorothiazide who presented to the ED via EMS from [facility] with the complaint of confusion and generalized weakness. Admitted for hyponatremia, altered mental status and UTI. 1. Hyponatremia - Na is slightly lower than yesterday - Secondary to Hypovolemia likely - Pt was initially given IV Normal Saline on admission, will stop this now - Continue to hold Lasix for now - Repeat BMP in AM 2. Altered Mental Status - Resolved, and pt is back to her baseline mentation per her son - Secondary to acute UTI and Hyponatremia 3. Acute UTI - Resolving - Urine culture positive for Klebsiella on admission - Continue IV Rocephin 2 grams daily for one more day then stop - Repeat UA was negative on 06/16/2016 4. Essential Hypertension - Well controlled - Continue home Atenolol 5. Hyperlipidemia - Continue home statin therapy 6. Hypothyroidism - Thyroid function normal - Continue Levothyroxine at current dose 7. Disposition - Anticipate discharge to home in the next 1-2 days GI Prophylaxis: Not indicated VTE Prophylaxis: Sub-Q Enoxaparin VTE Mechanical Devices: Intermittant Pneumatic CD Resuscitation Status: DNR/DNI:Do Not Resuscitate/Intubate Ash Bradshaw MD Jun 17, 2016 10:18
--- NOTE | 2016-06-17 19:14 | NUR ---
Activity Pt has had minimal coughing and edema has improved to only mild pitting on LE. Pt states only mild SOB at beginning of shift, but improved to no SOB by afternoon. Pt was given meds for constipation and has gone to BR w/o BM by end of shift. Feels like she will have BM soon. Pt having some forgetfulness, but is A&O x 2. Has had no pain during shift and was able to sit in recliner which helped her back.
[2016-06-18] VITALS (7 sets, daily range): BP systolic 142–195; BP diastolic 55–77; PULSE 54–73; RESP 14–18; O2SAT 96–100
[2016-06-18] MEDS ORDERED: 0.9% Sodium Chloride 250 ML ONE (04:45)
[2016-06-18] MEDS: cefTRIAXone Inj 1,000 MG in Dextrose 5% Minibag Plus 50 ML IV SCH (04:49)
--- NOTE | 2016-06-18 05:42 | NUR ---
activity pt sat up in recliner for several hours before going to bed. she has had minimal complaints of pain. she did take tylenol once this shift for back pain. otherwise she has been sleeping without incident. she has not had BM despite trying several times. will continue to monitor.
[2016-06-18 06:21] LABS: BASOPHILS % (AUTO) 0.3 % (0-3); EOSINOPHILS % (AUTO) 1.2 % (0-5); MONOCYTES % (AUTO) 12.1 % (4-12); Mean Corpuscular Hemoglobin 30.6 pg (27.0-35.0); Mean Corpuscular Volume 89.8 fL (81-100); NEUTROPHILS % (AUTO) 53.6 % (40-74); Platelet Count 227 bil/L (150-400)
[2016-06-18] MEDS: Nystatin 100,000 Unit/Gm 15 Gm Powder TOPICAL SCH ×2 (08:09→22:40)
--- NOTE | 2016-06-18 09:13 | NUR ---
[facility] Signed
--- NOTE | 2016-06-18 10:15 | NUR ---
Evaluation completed. Please go to "Notes" then click on "Assessments and Notes" (bottom left corner of screen). Then select appropriate discipline tab on top of screen.
--- NOTE | 2016-06-18 11:43 | PCM.PNMED ---
Subjective Date of Service Jun 18, 2016 Subjective Pt states she is feeling a litte bit better today. She denies any dysuria or urinary urgency or frequency now. No other complaints or concerns at this time. Exam Vital Signs Vital Sign - Last Date Time Temp Pulse Resp B/P Pulse Ox O2 Delivery O2 Flow Rate FiO2 06/18/16 08:56 142/55 06/18/16 07:56 36.2 57 14 96 Room Air Intake and Output 06/17/16 06/17/16 06/18/16 Cumulative From/Thru 15:00 23:00 07:00 06/12/16 22:53 - 06/18/16 04:44 Intake Total 571 ml 1272 ml 1200 ml 64966 ml Output Total 1350 ml 2025 ml 1100 ml 33884 ml Balance -779 ml -753 ml 100 ml -79 ml Intake Oral 350 ml 1272 ml 1200 ml 6442 ml IV Total 221 ml 6734 ml Output Urine Total 1350 ml 2025 ml 1100 ml 54217 ml # Bowel Movements 0 0 0 Exam GENERAL: NAD, Pt laying in bed comfortably HEENT: AT/NC, PERRLA, EOMI, Mucus Membranes are moist CARDIAC: RRR; No M/R/G PULM: CTAB; No wheezes or rhonchi bilaterally NEURO: Alert and oriented x2-3; Following all commands PSYCH: Normal mood and affect IVs and Medications Medications Reviewed: Medications were reviewed in detail Lab and Diagnostics Result Diagram: 06/18/16 0545 06/18/16 0545 Microbiology Urine culture pending X-Rays, CTs and MRIs Chest Xray (06/13/16)- No Acute cardiopulmonary process. Official radiology read pending at time of admission. CT HEAD (06/13/16)- CONCLUSION: Atrophy with chronic small vessel ischemic changes. No acute intracranial abnormality. Signed by Rah Bonner M.D. 06/13/2016, 0022. 12-lead ECG NSR with rate 63, no acute ST changes. Assessment & Plan 89 y/o female with a history of colovaginal fistula with recurrent UTIs, hypertension, hyperlipidemia, hypothyroidism, depression and prior hyponatremia associated to hydrochlorothiazide who presented to the ED via EMS from [facility] with the complaint of confusion and generalized weakness. Admitted for hyponatremia, altered mental status and UTI. 1. Hyponatremia - Na is slightly improved today - Secondary to Hypovolemia likely - Pt was initially given IV Normal Saline on admission, but this was then stopped on 06/17/2016 - Continue to hold Lasix for now - Repeat BMP in AM 2. Altered Mental Status - Resolved, and pt is back to her baseline mentation per her son - Secondary to acute UTI and Hyponatremia 3. Acute UTI - Resolved - Urine culture positive for Klebsiella on admission - Pt received IV Rocephin 2 grams daily for 3 days total, this will be stopped today - Repeat UA was negative on 06/16/2016 4. Essential Hypertension - Uncontrolled - Continue home Atenolol - Start pt on Amlodipine 5 mg PO daily now - Monitor BP closely 5. Hyperlipidemia - Continue home statin therapy 6. Hypothyroidism - Thyroid function normal - Continue Levothyroxine at current dose 7. Disposition - Anticipate discharge to home in the next 1-2 days GI Prophylaxis: Not indicated VTE Prophylaxis: Sub-Q Enoxaparin VTE Mechanical Devices: Intermittant Pneumatic CD Resuscitation Status: DNR/DNI:Do Not Resuscitate/Intubate sAh Bradshaw MD Jun 18, 2016 11:43
[2016-06-18] MEDS: Polyethylene Glycol (PEG) 17 Gm Powder PO PRN (12:30)
--- NOTE | 2016-06-18 13:00 | NUR ---
Continence / Activity / GI Pt has experienced no incontinence of urine or stool today. She responds well to prompting for frequent toileting and is able to move from bed to the bathroom with 1-person assist and the FWW. Pt still wearing a brief. Pt cannot recall the last time she had a BM. States she does not feel constipated. Abdomen is soft. Administered senna tabs and Miralax. Pt has good oral fluid intake. Care continues.
[2016-06-19 06:28] VITALS: BP 155/60; PULSE 60; RESP 17; O2SAT 93
[2016-06-19] MEDS: 0.9% Sodium Chloride 1,000 ML IV SCH ×2 (09:55→18:55)
[2016-06-19] MEDS: Nystatin 100,000 Unit/Gm 15 Gm Powder TOPICAL SCH ×2 (10:15→22:37)
[2016-06-19 10:29] VITALS: PULSE 92
--- NOTE | 2016-06-19 13:46 | NUR ---
Lost IV access Physician placed new order for NaCl at 100/hr. PIV was patent when flushed but continually set off the alarm on the IV pump. Finally IV became infiltrated and painful and was removed. IV therapy has been called to place a new IV. Care continues.
--- NOTE | 2016-06-19 13:57 | PCM.PNMED ---
Subjective Date of Service Jun 19, 2016 Subjective Pt states she is feeling quite a bit better today and is starting to "feel stronger" again. RN reports no acute events. Pt has no complaints or concerns at this time. Exam Vital Signs Vital Sign - Last Date Time Temp Pulse Resp B/P Pulse Ox O2 Delivery O2 Flow Rate FiO2 06/19/16 10:29 92 Room Air 06/19/16 06:28 36.2 17 155/60 93 Intake and Output 06/18/16 06/18/16 06/19/16 Cumulative From/Thru 15:00 23:00 07:00 06/12/16 22:53 - 06/19/16 06:21 Intake Total 2327 ml 570 ml 34712 ml Output Total 2000 ml 700 ml 20630 ml Balance 327 ml -130 ml 118 ml Intake Oral 2327 ml 570 ml 9339 ml IV Total 6734 ml Output Urine Total 2000 ml 700 ml 00889 ml # Bowel Movements 0 1 1 Exam GENERAL: NAD, Pt laying in bed comfortably HEENT: AT/NC, PERRLA, EOMI, Mucus Membranes are moist CARDIAC: RRR; No M/R/G PULM: CTAB; No wheezes or rhonchi bilaterally NEURO: Alert and oriented x3; Following all commands PSYCH: Normal mood and affect IVs and Medications Medications Reviewed: Medications were reviewed in detail Lab and Diagnostics Result Diagram: 06/18/16 0545 06/19/16 0540 Microbiology Urine culture pending X-Rays, CTs and MRIs Chest Xray (06/13/16)- No Acute cardiopulmonary process. Official radiology read pending at time of admission. CT HEAD (06/13/16)- CONCLUSION: Atrophy with chronic small vessel ischemic changes. No acute intracranial abnormality. Signed by Rah Bonner M.D. 06/13/2016, 0022. 12-lead ECG NSR with rate 63, no acute ST changes. Assessment & Plan 89 y/o female with a history of colovaginal fistula with recurrent UTIs, hypertension, hyperlipidemia, hypothyroidism, depression and prior hyponatremia associated to hydrochlorothiazide who presented to the ED via EMS from [facility] with the complaint of confusion and generalized weakness. Admitted for hyponatremia, altered mental status and UTI. 1. Hyponatremia - Na is slightly improved today - Secondary to Hypovolemia likely - Pt was initially given IV Normal Saline on admission, but this was then stopped on 06/17/2016 - Restart IV Normal Saline again at 100 mL/hour for 24 hours - Continue to hold Lasix for now - Repeat BMP in AM 2. Altered Mental Status - Resolved, and pt is back to her baseline mentation per her son - Secondary to acute UTI and Hyponatremia 3. Acute UTI - Resolved - Urine culture positive for Klebsiella on admission - Pt received IV Rocephin 2 grams daily for 3 days total, this will be stopped today - Repeat UA was negative on 06/16/2016 4. Essential Hypertension - Uncontrolled - Continue home Atenolol - Start pt on Amlodipine 5 mg PO daily now - Monitor BP closely 5. Hyperlipidemia - Continue home statin therapy 6. Hypothyroidism - Thyroid function normal - Continue Levothyroxine at current dose 7. Disposition - Anticipate discharge to home in the next 1-2 days GI Prophylaxis: Not indicated VTE Prophylaxis: Sub-Q Enoxaparin VTE Mechanical Devices: Intermittant Pneumatic CD Resuscitation Status: DNR/DNI:Do Not Resuscitate/Intubate Ash Bradshaw MD Jun 19, 2016 13:57
[2016-06-19 14:24] VITALS: BP 152/72; PULSE 5; PULSE 57; RESP 18; O2SAT 99
--- NOTE | 2016-06-19 16:09 | NUR ---
Social Work Note - Continued Discharge Planning: D/A: The Pt is an 89 y/o female that is now on day 6 of admission for AMS/Hyponatremia. Pt discussed in rounds, not medically stable for discharge. Pt likely to discharge back to [place] with [facility] (RN/PT) and private pay caregivers when medically ready. Access given. F2F in chart. SW will continue to follow. P: The Pt is not medically stable for discharge. Pt likely to discharge back to [place] with [facility] (RN/PT) and private pay givers. SW will continue to follow. CHELSEA Dutton Addendum: 06/19/16 at 1623 by ANNABELLA LAMAS LEIGH reviewed information technology intern note. CHELSEA You
[2016-06-19 21:10] VITALS: BP 143/79; PULSE 60; RESP 18; O2SAT 97
[2016-06-20 01:10] VITALS: BP 168/79; PULSE 58; RESP 18; O2SAT 98
[2016-06-20] MEDS: 0.9% Sodium Chloride 1,000 ML IV SCH ×2 (04:55→12:16)
[2016-06-20 05:04] VITALS: BP 129/74; PULSE 83; RESP 16; O2SAT 95
--- NOTE | 2016-06-20 05:56 | NUR ---
Activity Pt frequently calls and ambulates with FWW and 1x assist to BR. Pale yellow urine. Pt given 1L ns and chicken broth for sodium supplement. Given apap for back pain. Pt appears comfortable, confused and disoriented but this may be her baseline. Pitting edema bilaterally, no CP and no SOB. No complaints of back itch or new skin issues, nystatin powder at bedside. Care continues
[2016-06-20 08:57] VITALS: BP 140/71; PULSE 68; RESP 16; O2SAT 96
[2016-06-20] MEDS: Nystatin 100,000 Unit/Gm 15 Gm Powder TOPICAL SCH ×2 (09:05→20:44)
--- NOTE | 2016-06-20 09:19 | NUR ---
AKANKSHA signed at 9am
[2016-06-20 10:09] VITALS: PULSE 95
--- NOTE | 2016-06-20 10:35 | NUR ---
Ambulate w/Nsg for increased activity tolerance Pt would benefit from walking 2-3x/day w/nsg to increase activity tolerance using FWW and CGA/SBA prn. PT to continue seeing daily.
--- NOTE | 2016-06-20 13:10 | PCM.PNMED ---
Subjective Date of Service Jun 20, 2016 Subjective Pt doing well. She has no complaints or concerns at this time. She states she is no longer feeling weak. Exam Vital Signs Vital Sign - Last Date Time Temp Pulse Resp B/P Pulse Ox O2 Delivery O2 Flow Rate FiO2 06/20/16 10:09 95 Room Air 06/20/16 08:57 36.4 16 140/71 96 Intake and Output 06/19/16 06/19/16 06/20/16 Cumulative From/Thru 15:00 23:00 07:00 06/12/16 22:53 - 06/20/16 05:08 Intake Total 45 ml 1792 ml 42754 ml Output Total 1650 ml 38460 ml Balance 45 ml 142 ml 305 ml Intake Oral 1792 ml 64353 ml IV Total 45 ml 6779 ml Output Urine Total 1650 ml 85763 ml # Bowel Movements 2 3 Exam GENERAL: NAD, Pt laying in bed comfortably HEENT: AT/NC, PERRLA, EOMI, Mucus Membranes are moist CARDIAC: RRR; No M/R/G PULM: CTAB; No wheezes or rhonchi bilaterally NEURO: Alert and oriented x2; Following all commands PSYCH: Normal mood and affect IVs and Medications Medications Reviewed: Medications were reviewed in detail Lab and Diagnostics Result Diagram: 06/18/16 0545 06/20/16 0615 Microbiology Urine culture pending X-Rays, CTs and MRIs Chest Xray (06/13/16)- No Acute cardiopulmonary process. Official radiology read pending at time of admission. CT HEAD (06/13/16)- CONCLUSION: Atrophy with chronic small vessel ischemic changes. No acute intracranial abnormality. Signed by Rah Bonner M.D. 06/13/2016, 0022. 12-lead ECG NSR with rate 63, no acute ST changes. Assessment & Plan 89 y/o female with a history of colovaginal fistula with recurrent UTIs, hypertension, hyperlipidemia, hypothyroidism, depression and prior hyponatremia associated to hydrochlorothiazide who presented to the ED via EMS from [facility] with the complaint of confusion and generalized weakness. Admitted for hyponatremia, altered mental status and UTI. 1. Hyponatremia - Na is slightly improved today - Secondary to Hypovolemia likely - Baseline Na is 138 - Pt was initially given IV Normal Saline on admission, but this was then stopped on 06/17/2016 - Continue IV Normal Saline for now - Continue to hold Lasix for now - Repeat BMP in AM 2. Altered Mental Status - Resolved, and pt is back to her baseline mentation per her son - Secondary to acute UTI and Hyponatremia 3. Acute UTI - Resolved - Urine culture positive for Klebsiella on admission - Pt received IV Rocephin 2 grams daily for 3 days total, this will be stopped today - Repeat UA was negative on 06/16/2016 4. Essential Hypertension - Uncontrolled - Continue home Atenolol - Start pt on Amlodipine 5 mg PO daily now - Monitor BP closely 5. Hyperlipidemia - Continue home statin therapy 6. Hypothyroidism - Thyroid function normal - Continue Levothyroxine at current dose 7. Disposition - Anticipate discharge to home in AM GI Prophylaxis: Not indicated VTE Prophylaxis: Sub-Q Enoxaparin VTE Mechanical Devices: Intermittant Pneumatic CD Resuscitation Status: DNR/DNI:Do Not Resuscitate/Intubate Ash Bradshaw MD Jun 20, 2016 13:10
--- NOTE | 2016-06-20 15:54 | NUR ---
Social Work Note - readiness for discharge. Data:EMR Reviewed. pt is on day 7 for alerted mental status per H&P. Pt is not medically stable anticipate tomorrow. PT has cleared pt for home with services. Pt to discharge back to [facility]. Referral has been made to [facility] for RN and PT. Pt also has private pay caregivers set up. Pt will need private pay transport through [facility] when medically stable. F2F in folder. SW will continue to follow. Assessment:Pt who would benefit from HH. Plan:Pt to discharge back to [facility] when medically stable via private pay cabulance. Referral made to [facility] for RN and PT. F2F in folder. SW will continue to follow. CHELSEA You
--- NOTE | 2016-06-20 16:11 | NUR ---
Activity Pt up to the bathroom frequently. SBA FWW. SOB with exertion, baseline per pt. Pt has had no c/o back pain this afternoon. Kpad available if needed. [place] alarm on and pt using call light appropriately. Care continues.
--- NOTE | 2016-06-20 19:36 | NUR ---
I took over care of patient at 5:00 pm Addendum: 06/20/16 at 1936 by DOMINICK MARTI CNA Amended: Links added.
[2016-06-20 19:59] VITALS: BP 146/74; PULSE 61; RESP 18; O2SAT 95
[2016-06-21] MEDS: 0.9% Sodium Chloride 1,000 ML IV SCH (01:05)
[2016-06-21 04:01] VITALS: BP 123/72; PULSE 66; RESP 16; O2SAT 96
--- NOTE | 2016-06-21 06:16 | NUR ---
Mentation/Pain Pt A&O x2, able to answer questions and make needs known, uses call light appropriately. Pt reports some bladder discomfort, Tylenol given x1, effective.
[2016-06-21] MEDS ORDERED: AMLO5TAB2 PO (08:39)
--- NOTE | 2016-06-21 08:41 | PCM.DIMED ---
Discharge Instructions Date of Service Jun 21, 2016 Dates of Hospitalization Jun 13, 2016 at 00:56 Discharge Diagnosis Discharge Diagnosis 1. Hyponatremia, Resolving 2. Essential Hypertension 3. [place] Extremity Edema 4. Hypothyroidism 5. Hyperlipidemia 6. Alzheimer's Disease, Mild Diet Heart Healthy Activity No restrictions Call your provider Fever or Chills, Shortness of breath, Bleeding, Chest pain, Vomitting, Excessive diarrhea, Weakness (unilateral) Patient Instructions Follow-up with PCP in: 1 week (Pts family to call for an appointment, and pt to have sodium level checked within a week.) Ahs Bradshaw MD Jun 21, 2016 08:41
[2016-06-21 09:06] VITALS: BP 136/63; PULSE 71; RESP 18; O2SAT 96
[2016-06-21] MEDS: Nystatin 100,000 Unit/Gm 15 Gm Powder TOPICAL SCH (09:09)
--- NOTE | 2016-06-21 12:28 | PCM.DC.MED ---
Discharge Summary Date of Service Jun 21, 2016 Dates of Hospitalization Date of Hospital Admission Jun 13, 2016 at 00:56 Date of Discharge: Jun 21, 2016 Providers: Admitting Physician: Artem De León MD Primary Care Physician: Carey Martinez DO Attending Physician: Artem De León MD Diagnosis at Time of Discharge Diagnosis at Time of Discharge 1. Hyponatremia, Resolving 2. Essential Hypertension 3. Lowe Extremity Edema 4. Hypothyroidism 5. Hyperlipidemia 6. Alzheimer's Disease, Mild Procedures XRay, CTs & MRIs Chest Xray (06/13/16)- No Acute cardiopulmonary process. Official radiology read pending at time of admission. CT HEAD (06/13/16)- CONCLUSION: Atrophy with chronic small vessel ischemic changes. No acute intracranial abnormality. Signed by Rah Bonner M.D. 06/13/2016, 0022. ECG 12 Lead NSR with rate 63, no acute ST changes. Brief History Patient is an 89-year-old female with a history of colovaginal fistula with recurrent UTIs, hypertension, hyperlipidemia, hypothyroidism, depression and prior hyponatremia associated to hydrochlorothiazide who presented to the ED via EMS from [facility] with the complaint of worsening confusion and generalized weakness for past 1-2 weeks. History obtained from mostly from the patient's and son due to patient condition. Per the patient's she has had a persistent, non-productive cough for the past week and has been more confused than usual. He states that they were doing exercises at home earlier today when the patient had a ground level fall. He states that she has been eating and drinking okay but complaining of painful urination, increased urinary frequency and general malaise. Huy endorses multiple sick contacts recently between family and fellow residents at [place] but deny fever, chills, nausea, vomiting, diarrhea, hematuria or bloody stools. In the ED, vitals patient was afebrile with a temp 36.7C, BP 146/59, HR 61, RR 16, SpO2 90% on room air. Labs significant for sodium 115, potassium 4.4, chloride 76, bicarb 23, BUN 15, creatinine 0.65, serum glucose 128, calcium 9.1 , magnesium 1.6, negative troponin, proBNP 226.2. UA urine specific gravity 1.015, 11-50 wbc, many bacteria, color interference for pH/protein/glucose/ ketones/occult blood/nitrite/ and leukocyte esterace. Urine culture pending. EKG - NSR with rate 63. Chest Xray with no acute process, CT head showing atrophy with chronic small vessel ischemic changes, no acute intracranial abnormality. Hospital Course 89 y/o female with a history of colovaginal fistula with recurrent UTIs, hypertension, hyperlipidemia, hypothyroidism, depression and prior hyponatremia associated to hydrochlorothiazide who presented to the ED via EMS from [facility] with the complaint of confusion and generalized weakness. Admitted for hyponatremia, altered mental status and UTI. 1. Hyponatremia - Na is back to pts baseline and pt is completely asymptomatic at this time - Her Na on day of discharge is 129 - Pt was initially given IV Normal Saline on admission, but this was then stopped on 06/20/2016 - Pt to have a repeat BMP at the [facility] where she is going within the next week 2. Altered Mental Status - Resolved, and pt is back to her baseline mentation per her son - Secondary to acute UTI and Hyponatremia 3. Acute UTI - Resolved - Urine culture positive for Klebsiella on admission - Pt received IV Rocephin 2 grams daily for 3 days total, this will be stopped on 06/20/2016 - Repeat UA was negative on 06/16/2016 4. Essential Hypertension - Stable - Continue home Atenolol - Continue Amlodipine 5 mg PO daily 5. Hyperlipidemia - Continue home statin therapy 6. Hypothyroidism - Thyroid function normal - Continue Levothyroxine at current dose 7. Disposition - Pt is discharged to SNF in good/stable condition Exam Vital Signs (Last) Date Time Temp Pulse Resp B/P Pulse Ox O2 Delivery O2 Flow Rate FiO2 06/21/16 09:06 36.5 71 18 136/63 96 Room Air Exam GENERAL: NAD, Pt laying in bed comfortably HEENT: AT/NC, PERRLA, EOMI, Mucus Membranes are moist CARDIAC: RRR; No M/R/G PULM: CTAB; No wheezes or rhonchi bilaterally EXT: 1+ pitting edema in bilateral LE NEURO: Alert and oriented x2; Following all commands PSYCH: Normal mood and affect Test 06/12/16 23:20 06/13/16 04:50 06/16/16 17:49 06/18/16 05:45 Osmolality 248 (275-300) Magnesium Level 1.6mg/dL (1.6-2.6) Total Bilirubin 0.4mg/dL (0.0-1.2) Aspartate Amino Transf (AST/SGOT) 20U/L (0-50) Alanine Aminotransferase (ALT/SGPT) 16U/L (0-32) Alkaline Phosphatase 52U/L (25-165) Troponin T 0.010ug/L (0.0-0.011) Pro-B-Type Natriuretic Peptide 226.2pg/mL (0-738) Total Protein 7.1g/dL (6.4-8.4) Albumin 3.8g/dL (3.4-5.0) Triglycerides Level 136mg/dL (0-149) Cholesterol Level 174mg/dL (100-199) LDL Cholesterol, Calculated 97.800mg/dL (0-99) VLDL Cholesterol 27.200mg/dL HDL Cholesterol 49mg/dL (>39) Cholesterol/HDL Ratio 3.55 (0.0-4.4) Thyroid Stimulating Hormone (TSH) 5.490uIU/mL (0.450-4.500) Hold [place] Top Tube Received (Received) Urine Osmolality 163mOs/kH2O (250-1200) Urine Random Sodium 29mEq/L Urine Color Yellow (YELLOW) Urine Appearance Clear (CLEAR,HAZY) Urine pH 6.0 (5.0-8.0) Urine Specific [place] 1.010 (1.003-1.035) Urine Protein Negativemg/dL (NEG,TRACE) Urine Glucose (UA) Negativemg/dL (NEGATIVE) Urine Ketones Negativemg/dL (NEGATIVE) Urine Occult Blood Negative (NEGATIVE) Urine Nitrite Negative (NEGATIVE) Urine Bilirubin Negative (NEGATIVE) Urine Urobilinogen Normalmg/dL (NORMAL) Urine Leukocyte Esterase Negative (NEGATIVE) Urine RBC 0-2/hpf (0-2) Urine WBC 0-5/hpf (0-5) Urine Epithelial Cells Moderate/hpf (NONE-MOD) Urine Crystals None seen (NONE SEEN) Urine Bacteria None/hpf (NONE-FEW) Urine Hyaline Casts None/lpf (NONE) Urine Granular Casts None seen (NONE SEEN) Urine Waxy Casts None seen (NONE SEEN) Urine Red Blood Cell Casts None seen (NONE SEEN) Urine White Blood Cell Casts None seen (NONE SEEN) Urine Mucus Present (None Seen) Urine Trichomonas None seen (NONE SEEN) Urine Yeast None (NONE SEEN) Urinalysis Comment None Urine Culture Reflexed Not indicated White Blood Count 5.7th/mm3 (3.8-10.1) Red Blood Count 3.73mil/mm3 (3.90-5.20) Hemoglobin 11.4g/dL (12.0-15.6) Hematocrit 33.5% (35.0-46.0) Mean Corpuscular Volume 89.8fL (81-100) Mean Corpuscular Hemoglobin 30.6pg (27.0-35.0) Mean Corpuscular Hemoglobin Concent 34.0% (32.0-37.0) Red Cell Distribution Width 12.5% (12.3-15.4) Platelet Count 227bil/L (150-400) Neutrophils (%) (Auto) 53.6% (40-74) Lymphocytes (%) (Auto) 32.5% (14-46) Monocytes (%) (Auto) 12.1% (4-12) Eosinophils (%) (Auto) 1.2% (0-5) Basophils (%) (Auto) 0.3% (0-3) Test 06/18/16 20:30 06/21/16 05:50 Hold [place] Top Tube Received (Received) Sodium Level 129mEq/L (134-144) Potassium Level 4.6mEq/L (3.5-5.2) Chloride Level 93mEq/L (97-108) Carbon Dioxide Level 24mmol/L (18-29) Blood Urea Nitrogen 12mg/dL (8-27) Creatinine 0.64mg/dL (0.57-1.00) Estimat Glomerular Filtration Rate 125mL/min (>59) Glucose Level 96mg/dL (60-99) Calcium Level 9.4mg/dL (8.5-10.1) Microbiology Results Urine culture pending Discharge Medications Discharge Medications Amlodipine (Amlodipine) 5 Mg Tablet 5 MG PO DAILY Prescribed by: OSMIN LOZANO MD Aspirin (Aspirin) 81 Mg Tablet 81 MG PO DAILY (Reported) Atenolol (Atenolol) 50 Mg Tablet 50 MG PO DAILY (Reported) Atorvastatin (Lipitor) 20 Mg Tablet 20 MG PO DAILY (Reported) Levothyroxine (Levothyroxine) 150 Mcg Tablet 150 MCG PO DAILY (Reported) Losartan Potassium (Losartan Potassium) 50 Mg Tablet 50 MG PO DAILY (Reported) As needed Furosemide (Furosemide) 20 Mg Tab 20 MG PO DAILY PRN PRN edema (Reported) Followup Plan Discharge Diet: Heart Healthy Discharge Activity: No restrictions Follow-up with PCP in: 1 week (Pts family to call for an appointment, and pt to have sodium level checked within a week.) Time spent 32 minutes Osmin Lozano MD Jun 21, 2016 12:28
--- NOTE | 2016-06-21 15:54 | NUR ---
Discharge Pt. discharged to home at [facility] via transport company at 1415 in stable condition. IV dc'd prior to discharge. Son is present. Discharge info discussed with both of them. All belongings, instructions and scripts with pt. no questions or concerns at this time.
== END 2016-06-21 14:37 | disposition home or self-care (01) | DRG 641 ==
LOC: SED 22:43 → OSC 06-13 00:56
PROVIDERS: ADMIT Family Medicine; ATTEND Family Medicine
DX: E87.1 Hypo-osmolality and hyponatremia (principal); N39.0 Urinary tract infection, site not specified; I10 Essential (primary) hypertension; E03.9 Hypothyroidism, unspecified; E78.5 Hyperlipidemia, unspecified; B96.1 Klebsiella pneumoniae [K. pneumoniae] as the cause of diseases classified elsewhere; J45.909 Unspecified asthma, uncomplicated; F32.9 Major depressive disorder, single episode, unspecified; G30.9 Alzheimer's disease, unspecified; F02.80 Dementia in other diseases classified elsewhere, unspecified severity, without behavioral disturbance, psychotic disturbance, mood disturbance, and anxiety; B97.81 Human metapneumovirus as the cause of diseases classified elsewhere

== ENCOUNTER 2016-06-22 14:10 | Observation (INO) | payer MEDICARE ==
[~2016-06-22] VITALS: Ht 167.6 cm; Wt 109.1 kg
[~2016-06-22 14:10] MED LIST: AMLO5TAB2 PO; ASPI-973 PO; ATEN50TA PO; ATOR20TA PO; FUR20 PO; LEVO150T5 PO; LOSA50TA37 PO
[2016-06-22 14:12] VITALS: BP 136/54; PULSE 50; RESP 21; O2SAT 99
--- NOTE | 2016-06-22 14:37 | ED.REPORT ---
HPI-General Illness Date of Service Jun 22, 2016 ED Provider: Hari Barahona DO The patient is an 89 year old female with history of dementia, asthma, and hypertension, who was brought to the emergency department from [place] by EMS for left facial droop that was noted prior to arrival. The patient also had slurred speech, disorientation, and shortness of breath. The episode only lasted for about 20 minutes and is currently resolved. The patient was started on amlodipine yesterday. At this time she only complains of back pain. She was recently admitted from 06/12-06/21 for altered mental status, UTI, hyponatremia. She was discharged home yesterday. Nursing Notes Stated Complaint: POSSIBLE CVA Chief Complaint: General Complaint Nursing Notes Reviewed: Yes Allergies: Coded Allergies: Penicillins (Verified Allergy, Unknown, 06/15/16) Uncoded Allergies: BEES (Allergy, Severe, WELTS AND SWOLLEN LIPS, 06/12/16) PENICILLIN (Allergy, Unknown, 06/12/16) Scheduled Amlodipine (Amlodipine) 5 Mg Tablet 5 MG PO DAILY Aspirin (Aspirin) 81 Mg Tablet 81 MG PO DAILY Atenolol (Atenolol) 50 Mg Tablet 50 MG PO DAILY Atorvastatin (Lipitor) 20 Mg Tablet 20 MG PO DAILY Levothyroxine (Levothyroxine) 150 Mcg Tablet 150 MCG PO DAILY Losartan Potassium (Losartan Potassium) 50 Mg Tablet 50 MG PO DAILY Scheduled PRN Furosemide (Furosemide) 20 Mg Tab 20 MG PO DAILY PRN PRN edema General Time Seen by MD: 14:26 Chief Complaint Other (facial droop) Hx Obtained From: Patient, Son, Other family..., EMS Arrived By: Ambulance Sudden in Onset?: Yes Onset Occurred: 16 - 30 minutes ago Symptom Duration: 1 - 15 minutes Location: : Back Quality: Painful Severity: Current: Moderate Severity: Maximum: Moderate Recent Healthcare: Recent doctor visit, Recent hospitalization Similar Sx Previous: No Past Medical History Past Medical History PNAx2 Reports: Asthma, Hypertension Past Surgical History KELSEY. BSO. Family History Noncontributory Smoking History Never Smoker Social History Lives at [facility]. Other Social History: Good social support, , Local resident Ambulatory Status Walker Review of Systems Full Review of Systems Respiratory: Reports: Shortness of breath Musculoskeletal: Reports: Back pain Neurologic: Reports: Confusion, Focal weakness, Slurred speech Complete sys rev & neg: except as marked. Physical Exam Vital Signs Vital Signs Date Time Temp Pulse Resp B/P Pulse Ox O2 Delivery O2 Flow Rate FiO2 06/22/16 16:38 56 18 123/48 99 Room Air 06/22/16 14:12 36.5 50 21 136/54 99 Room Air Initial VS: Reviewed Head / Eyes: Atraumatic, Normocephalic, PERRL ENT: Mucous membranes moist, Conjunctiva normal, No scleral icterus Neck: Supple, Non-tender, Full range of motion Respiratory: Breath sounds normal, Clear to auscultation, No respiratory distress Cardiovascular: Regular rate & rhythm, Heart sounds normal, Intact distal pulses Abdomen / GI: Soft, Non-tender, No guarding, No rebound, No distention Lymphatic: No lymphadenopathy Extremities: Vascular intact, Neuro intact, No swelling, No tenderness Skin: Warm, Dry, No cyanosis Psychiatric: Mood/affect normal, Behavior normal, Normal thought content General/Constitutional: Awake Alertness: Positive: Confused Elderly Neurologic: Speech NL, No motor deficits, No sensory deficits, CN II - XII intact, Cerebellar NL Mental Status: Positive: Memory impairment chronic Interpretation & Diagnostics Lab Results Interpretation Result Diagram: 06/22/16 1610 06/22/16 1610 Test 06/22/16 16:10 White Blood Count 5.4th/mm3 (3.8-10.1) Red Blood Count 4.08mil/mm3 (3.90-5.20) Hemoglobin 12.4g/dL (12.0-15.6) Hematocrit 37.7% (35.0-46.0) Mean Corpuscular Volume 92.4fL (81-100) Mean Corpuscular Hemoglobin 30.4pg (27.0-35.0) Mean Corpuscular Hemoglobin Concent 32.9% (32.0-37.0) Red Cell Distribution Width 12.9% (12.3-15.4) Platelet Count 239bil/L (150-400) Neutrophils (%) (Auto) 55.5% (40-74) Lymphocytes (%) (Auto) 33.3% (14-46) Monocytes (%) (Auto) 8.7% (4-12) Eosinophils (%) (Auto) 1.7% (0-5) Basophils (%) (Auto) 0.6% (0-3) Sodium Level 127mEq/L (134-144) Potassium Level 4.6mEq/L (3.5-5.2) Chloride Level 91mEq/L (97-108) Carbon Dioxide Level 23mmol/L (18-29) Blood Urea Nitrogen 14mg/dL (8-27) Creatinine 0.75mg/dL (0.57-1.00) Estimat Glomerular Filtration Rate 104mL/min (>59) Glucose Level 91mg/dL (60-99) Calcium Level 9.7mg/dL (8.5-10.1) Total Bilirubin 0.6mg/dL (0.0-1.2) Aspartate Amino Transf (AST/SGOT) 26U/L (0-50) Alanine Aminotransferase (ALT/SGPT) 25U/L (0-32) Alkaline Phosphatase 45U/L (25-165) Total Protein 7.8g/dL (6.4-8.4) Albumin 4.2g/dL (3.4-5.0) CT Head Interpretation IMPRESSION: 1. No acute intracranial abnormalities. 2. Cerebral volume loss and chronic microvascular ischemic changes. 3. Ventricular dilation is more pronounced than sulci dilation. Differential diagnoses include central atrophy versus normal pressure hydrocephalus. Dictated by: Chata Fields M.D. on 06/22/2016 at 15:14 Study: Head CT no contrast Interpretation / Wet Read by: Interpret - Radiologist Re-Eval/Medical Decision Med Decision/Clinical Course Concern for TIA given the symptoms prior to arrival which have completely resolved at this time. She will be admitted. Source of Hx: Old records, EMS, Family Time of Eval: 16:09 Re-Evaluation/Progress Note: Rechecked the patient. Discussed CT results. Her family members report the patient has been acting normally since they have arrived. Time of Eval: 16:25 Re-Evaluation/Progress Note: Discussed plan for admission for a TIA. All questions were addressed. Consultation #1: Consulted With: composite layup worker Call Returned at: 16:15 Note: Discussed patient's case with the ED school social worker. He will see the patient. Consultation #2: Referral / Consult Name: Inessa Martinez MD Consulted With: Hospitalist Requested Call at: 16:28 Call Returned at: 16:48 Bog Worker: Will see patient, Agrees with eval, Agrees with plan, Accepts admit Counseled Regarding: Diagnosis, Lab results, Need for admission Discharge & Departure Primary Impression: TIA (transient ischemic attack) Transient cerebral ischemia type: unspecified Qualified Code: G45.9 - Transient cerebral ischemic attack, unspecified Disposition: ADMITTED TO HOSPITAL Discharge Condition All VS Reviewed: Yes Condition: Stable Referrals: Carey Martinez DO (PCP) [place] Attestation Portions of this note were transcribed by Amelie Hale. I, Dr. Barahona personally performed the history, physical exam and medical decision-making; I reviewed and confirmed the accuracy of the information in the transcribed note. Signed by: Aly Lewis, 06/22/2016 at 1700. copies to: Carey Martinez Timothy S DO Jun 22, 2016 14:37 Amelie Hale Jun 22, 2016 14:39
--- NOTE | 2016-06-22 15:12 | NUR ---
Evaluation completed. Please go to "Notes" then click on "Assessments and Notes" (bottom left corner of screen). Then select appropriate discipline tab on top of screen.
--- NOTE | 2016-06-22 15:20 | DRSVH ---
PROCEDURE: CT BRAIN WITHOUT CONTRAST ([id number]) INDICATIONS: AMS TECHNIQUE: Noncontrast 4.5 mm thick angled axial sections acquired from the foramen magnum to the vertex, with c oronal reformats. COMPARISON: [facility], CT, CT BRAIN WO CON, 06/13/2016, 0:06. FINDINGS: Image quality: Excellent. CSF spaces: Basal cisterns are patent. No extra-axial fluid collections. The ventricles are dilate d but symmetric in size and shape. Brain: No intracranial bleeds or masses. There is moderate cerebral volume loss for age, with resul tant ventricular and sulcal prominence. There are severe periventricular and deep white matter chron ic small vessel ischemic changes. There is intracranial internal carotid artery atherosclerosis. Skull and face: Calvarium and visualized facial bones appear intact, without suspicious lesions. Sinuses: Visualized sinuses and mastoids are clear. IMPRESSION: 1. No acute intracranial abnormalities. 2. Cerebral volume loss and chronic microvascular ischemic changes. 3. Ventricular dilation is more pronounced than sulci dilation. Differential diagnoses include centra l atrophy versus normal pressure hydrocephalus. Dictated by: Chata Fields M.D. on 06/22/2016 at 15:14 Approved by: Chata Fields M.D. on 06/22/2016 at 15:18
[2016-06-22 16:38] VITALS: BP 123/48; PULSE 56; RESP 18; O2SAT 99
[2016-06-22 16:44] LABS: BASOPHILS % (AUTO) 0.6 % (0-3); EOSINOPHILS % (AUTO) 1.7 % (0-5); MONOCYTES % (AUTO) 8.7 % (4-12); Mean Corpuscular Hemoglobin 30.4 pg (27.0-35.0); Mean Corpuscular Volume 92.4 fL (81-100); NEUTROPHILS % (AUTO) 55.5 % (40-74); Platelet Count 239 bil/L (150-400)
--- NOTE | 2016-06-22 19:29 | NUR ---
Admit to [facility] Pt. transferred to [facility] via gurney at 1740 in stable condition. Report received from ED RN prior to transfer. She reports no pain, chest pain, SOB, N/V. Pt. knows that she is at [facility], but does not remember why she is here. Easily reoriented. Does not know the date, but says it is 2016. Good strength in all extremities. 1PA with FWW to [facility]. Has very slight L facial droop apparent when she smiles, consistent with ED report. Will continue to monitor. Oriented to call light. [place] bed alarm in place and yellow socks on. Admit and med rec done.
[2016-06-22 19:54] VITALS: BP 169/72; PULSE 72; RESP 18; O2SAT 97
[2016-06-22] MEDS ORDERED: Labetalol 5 mg/mL 4 mL Inj IVPUSH PRN (20:55)
[2016-06-22] MEDS ORDERED: hydrALAZINE 20 mg/mL Inj IVPUSH PRN (20:55)
--- NOTE | 2016-06-22 22:25 | PCM.HPMED ---
Subjective Date of Service Jun 22, 2016 Primary Provider: Admitting Physician: Inessa Martinez MD Primary Care Physician: Carey Martinez DO Attending Physician: Inessa Martinez MD History of Present Illness: left facial droop HISTORY was OBTAIN[facility] FROM PATIENT [email or web address] History of present illness 89-year-old female brought in from [place] for left facial droop, slurred's speech, disorientation, shortness of breath that lasted for 20 minutes. Patient was started on amlodipine yesterday. She was discharged yesterday, hospitalized June 12 through the for altered mental status due to klebsiella UTI and acute on chronic hyponatremia due to HCTZ. unknown if prn lasix was used since discharge. No more urinary incontinence than baseline, no change in ambulation. In the ER vital signs stable aspirin 324, CT head report indicating ventriculomegaly. In the aaron, left nasolabial fold less. Review of Systems - none of the following - F/C/ MATA / lightheaded / dizziness / sob / cough / cp / n/v/diarrhea / bleeding/bruising / leg swelling / change in voiding / yeast infections / rash ambulates walker commode bedside Back pain PMHx Pneumonia x2 Recurrent UTIs Asthma Hypertension Hyperlipidemia Hyponatremia (baseline 129) Colovaginal fistula Benign cystadenoma left voary Depression Nonhodkins lyumpohma 2005 Hypothyroidism Surgical History Hysterectomy Unilateral salpingooopherectomy Appendectomy Tonsillectomy Adenoidectomy Mastoid surgery Knee replacement Carpal tunnel release Cataracts Family History Father- emphysema, stroke Mother stroke Social Hx never smoker [place] MEDICATIONS Scheduled Amlodipine (Amlodipine) 5 Mg Tablet 5 MG PO DAILY Aspirin (Aspirin) 81 Mg Tablet 81 MG PO DAILY Atenolol (Atenolol) 50 Mg Tablet 50 MG PO DAILY Atorvastatin (Lipitor) 20 Mg Tablet 20 MG PO DAILY Levothyroxine (Levothyroxine) 150 Mcg Tablet 150 MCG PO DAILY Losartan Potassium (Losartan Potassium) 50 Mg Tablet 50 MG PO DAILY Scheduled PRN Furosemide (Furosemide) 20 Mg Tab 20 MG PO DAILY PRN PRN edema Disposition OBS status pending PT/OT Assessment and plan were discussed with patient Allergies Coded Allergies: Penicillins (Verified Allergy, Unknown, 06/15/16) Uncoded Allergies: BEES (Allergy, Severe, WELTS AND SWOLLEN LIPS, 06/12/16) PENICILLIN (Allergy, Unknown, 06/12/16) PMH Social History Hx Alcohol Use: No Hx Substance Use: No Smoking Status: Never Smoker Exam Vital Signs Vital Sign - Last Date Time Temp Pulse Resp B/P Pulse Ox O2 Delivery O2 Flow Rate FiO2 06/22/16 16:38 56 18 123/48 99 Room Air 06/22/16 14:12 36.5 Lab and Diagnostics Labs Exam on admission on room air comfortable NAD A and O x 3 mood affect WNL NC/AT no icterus no injected eyes EOMI PERRL /no pharyngeal lesions/ no oral lesions / hearing intact Supple neck CTAB equal chest rise / no accessory muscle use / speaks in full sentences / no rrw RRR S1 S2 / soft systolic murmur / 2+ radial pulses Soft nt nd + BS no hepatosplenomegaly mild edema no cyanosis no ecchymosis of lower extremities No rash / no jaundice CNII-XII grossly intact symmetrical Strength grossly intact of bilateral upper and lower limbs less nasolabial left fold than right STUDIES EKG pending Trop pending UA pending LFT normal, normal CBC normal BMP Imaging PROCEDURE: CT BRAIN WITHOUT CONTRAST ([id number]) INDICATIONS: AMS TECHNIQUE: Noncontrast 4.5 mm thick angled axial sections acquired from the foramen magnum to the vertex, with coronal reformats. COMPARISON: [facility], CT, CT BRAIN WO CON, 06/13/2016, 0:06. FINDINGS: Image quality: Excellent. CSF spaces: Basal cisterns are patent. No extra-axial fluid collections. The ventricles are dilated but symmetric in size and shape. Brain: No intracranial bleeds or masses. There is moderate cerebral volume loss for age, with resultant ventricular and sulcal prominence. There are severe periventricular and deep white matter chronic small vessel ischemic changes. There is intracranial internal carotid artery atherosclerosis. Skull and face: Calvarium and visualized facial bones appear intact, without suspicious lesions. Sinuses: Visualized sinuses and mastoids are clear. IMPRESSION: 1. No acute intracranial abnormalities. 2. Cerebral volume loss and chronic microvascular ischemic changes. 3. Ventricular dilation is more pronounced than sulci dilation. Differential diagnoses include central atrophy versus normal pressure hydrocephalus. Result Diagram: 06/22/16 1610 06/22/16 1610 Assessment & Plan Active issues and reason for admission LEft facial droop/ resolved slurred speech, managing as TIA, alert during exam, hearing impaired, ambulates to commode w/ minimal assist. --pending MRI/carotid u/s/echo/lipid/trop serial --statin, dc asa, switch plavix, PT OT, tolerates drinking water at bedside, permissive HTN recurrent hyponatremia, previous admission w/ low TSH --pending repeat thyroid panel/cortisol, continue home levothyroxine dose for now prior UTI --pending UA radiographic ventriculomegaly --appears to be without change of gait/incontinence consistent w/ NPH, pending MRI for CVA work up Back pain --tylenol Chronic issues known prior to admission, present on admission Pneumonia x2 Recurrent UTIs Asthma Hypertension Hyperlipidemia Hyponatremia (baseline 129) Colovaginal fistula Benign cystadenoma left voary Depression Nonhodkins lyumpohma 2006 Hypothyroidism Diet cardiac pending TUBE MAKER DVT prophylaxis lovenox ambulate Code full Dispo OBS, pending PT/OT Inessa Martinez MD Jun 22, 2016 17:14
[2016-06-22 22:31] LABS: TROPONIN T 0.01 ug/L (0.0-0.011)
[2016-06-23] VITALS (8 sets, daily range): BP systolic 135–186; BP diastolic 53–73; PULSE 59–76; RESP 14–20; O2SAT 93–100
[2016-06-23 01:11] LABS: APPEARANCE,URINE HAZY (CLEAR,HAZY); COLOR,URINE YELLOW (YELLOW); OCCULT BLOOD,URINE NEGATIVE (NEGATIVE); UROBILINOGEN,URINE NORMAL (NORMAL)
--- NOTE | 2016-06-23 03:53 | NUR ---
activity Neuros have been WNL this shift. no obvious facial droop noted. pt has been alert and oriented x2-3. she can be forgetful but is easily reoriented. pt complained of a headache this shift that was relieved by tylenol. she has also complained of back ache. staff have been encouraging Q2H position changes and she has been given a heating pad for back. pt also has itching with no visible rash. lotion was applied which seemed to relieve the itch. will continue Q1h safety checks.
--- NOTE | 2016-06-23 08:42 | DRSVH ---
PROCEDURE: US BILATERAL DUPLEX DOPPLER IMAGING OF THE CAROTIDS ([id number]) INDICATIONS: Evaluate stroke follow up TECHNIQUE: Color and pulse Doppler interrogation was performed of both carotid systems, with image documentation and velocity measurements. COMPARISON: None. FINDINGS: All stenosis calculations are based on NASCET criteria. Right side: Brachial blood pressure: Not obtained Common carotid artery peak systolic velocity: 105 cm/sec. Internal carotid artery peak systolic velocity: 112 cm/sec. Internal carotid artery end diastolic velocity: 10 cm/sec. External carotid artery peak systolic velocity: 78 cm/sec. ICA/CCA peak systolic ratio: 1.06. Crawford scale imaging description: Mild atheromatous calcification is present at the bifurcation. Percent internal carotid artery stenosis: Less than 50% stenosis. Vertebral artery: Flow direction is antegrade. Left side: Brachial blood pressure: Not measured Common carotid artery peak systolic velocity: 89 cm/sec. Internal carotid artery peak systolic velocity: 84 cm/sec. Internal carotid artery end diastolic velocity: 93 cm/sec. External carotid artery peak systolic velocity: 67 cm/sec. ICA/CCA peak systolic ratio: 0.95. Crawford scale imaging description: Mild atheromatous plaque is present at the carotid bifurcation. Percent internal carotid artery stenosis: Less than 50% stenosis.. Vertebral artery: Flow direction is antegrade. IMPRESSION: 1. Less than 50% stenosis of the bilateral internal carotid arteries. Dictated by: Pari Chino M.D. on 06/23/2016 at 8:39 Approved by: Pari Chino M.D. on 06/23/2016 at 8:41
[2016-06-23] MEDS ORDERED: Ondansetron 2 mg/mL 2 mL Inj IVPUSH PRN (09:00)
--- NOTE | 2016-06-23 10:00 | NUR ---
Back pain Pt c/o a back ache at 6/10 secondary to sleeping on the bed. Pt says she normally does not have back pain. Pt has been using a K pad. Given APAP and pain reduced to 4/10. Pt experiences more relief with different positions and sitting in her chair. Will continue to monitor.
--- NOTE | 2016-06-23 10:04 | NUR ---
Evaluation completed. Please go to "Notes" then click on "Assessments and Notes" (bottom left corner of screen). Then select appropriate discipline tab on top of screen.
--- NOTE | 2016-06-23 13:54 | NUR ---
MRI MRI not done because pt is too large for the machine. Hospitalist notified.
--- NOTE | 2016-06-23 14:01 | PCM.PNMED ---
Subjective Date of Service Jun 23, 2016 Subjective Patient seen and examined at bedside. Medical records, lab testing, x-rays reviewed Patient is a poor historian and seems confused. No new complaints Unable to obtain MRI today due to obesity and anxiety Exam Vital Signs Vital Sign - Last Date Time Temp Pulse Resp B/P Pulse Ox O2 Delivery O2 Flow Rate FiO2 06/23/16 10:56 59 06/23/16 08:59 36.6 16 145/53 93 Room Air Exam General: No acute distress. In bed comfortably HEENT: PERRL . Sclerae is anicteric Mouth : Moist oropharyngeal mucosa. Neck: supple, trachea is midline Chest:clear to auscultation and percussion. There are no rales, rhonchi, wheezes or rubs. Heart: S1, S2 regular Rate, rhythm is regular. There is no murmur, rub or gallop. Abdomen: Soft, non-tender, non-distended. Normal bowel sounds on quadrant Extremities: No edema, no cyanosis Neurologic: Grossly non focal. Confused IVs and Medications Medications Reviewed: Medications were reviewed in detail Lab and Diagnostics Result Diagram: 06/22/16 1610 06/23/16 0618 Assessment & Plan Active issues and reason for admission 1.- TIA Vs CVA : Likely TIA , patient is at baseline from neurological standpoint Left facial droop and slurred speech resolved. -- Unable to obtain MRI due to obesity and anxiety. We will consider repeat CT scan of the head -- Continue statin, Plavix . Patient was previously on aspirin. -- PT evaluation and recommendation noted. Patient will need rehabilitation and discharge 2.- Hyponatremia, previous admission w/ low TSH Sodium 129. Thyroid function test pending. 3. 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 Back pain, chronic --tylenol prn Chronic issues known prior to admission, present on admission Pneumonia x2 Recurrent UTIs Asthma Hypertension Hyperlipidemia Hyponatremia (baseline 129) Colovaginal fistula Benign cystadenoma left voary Depression Nonhodkins lyumpohma 2006 Hypothyroidism Diet cardiac pending DIGITAL STRATEGIST DVT prophylaxis lovenox ambulate Code full Stable from neurological standpoint. Patient anticipated to short-term rehabilitation within 2 days VTE Mechanical Devices: Intermittant Pneumatic CD Resuscitation Status: CPR: Attempt Resuscitation Time spent 35 minutes Juan Ron MD Jun 23, 2016 14:01
[2016-06-23] MEDS: 0.9% Sodium Chloride 1,000 ML IV SCH (15:25)
--- NOTE | 2016-06-23 16:10 | NUR ---
GERMAINE explained to pt's family and signed by her son/POA. Copy of GERMAINE and Medicare self administered medication information given.
--- NOTE | 2016-06-23 16:14 | NUR ---
Social Work- Initial Assessment Data & Assessment: EMR reviewed. See Initial Assessment. Pt is a 89 year old female admitted for TIA per H&P. Patient does not have a re-admit score. Patient's insurance is [employer] ([employer]) and [employer]. Pt's PCP is Carey Martinez DO. SW attempted to meet with patient at bedside, but patient was in and out of sleep. SW spoke with patient's son, Moise [phone] and daughter regarding discharge plan, SW role explained and initial assessment complete. Patient's son is not sure if she has LTC benefits or not and patient does not have VA benefits. Pt resides at [facility] with her who assists her with medication management, meals, chores. Pt has [employer] caregiver who comes once per week to assist with showering. [place] walker at [place], does not drive. Pt has no SNF history, but patient was scheduled to start [facility] when she discharged from the hospital on 06/21/16. Pt's DPOA on file is Moise, peg, . SW notified patient and patient's family that PT is recommending SNF as discharge plan. they voiced understanding and was in agreement. SW provided them with a choice list. Patient's family wants to visit the facilities and will notify SW of choice. SW will continue to follow. Plan: Pt to discharge home to SNF via cabulance. SW to follow up regarding SNF choice. SW will continue to follow. Michael Tolbert LMSW, RANDY Addendum: 06/23/16 at 1628 by MICHAEL TOLBERT Amended: Links added.
--- NOTE | 2016-06-23 17:00 | NUR ---
Elevated BP/headache Pt's BP is elevated at 186/72. Pt has a "little bit" of a headache, which she says has decreased with Tylenol (pt was recently given Ultram for back pain/headache). Hospitalist notified. No new medications at this time. Will continue to monitor. Addendum: 06/23/16 at 1818 by AIDAN GRAVES RN Pt says that her back pain and headache have continued to decrease but still rates both at 5-6/10, although she refers to the pain as mild. Pt might be confused re: the pain scale. Will continue to monitor.
[2016-06-24] MEDS: 0.9% Sodium Chloride 1,000 ML IV SCH (04:24)
[2016-06-24 06:12] VITALS: BP 145/83; PULSE 66; RESP 18; O2SAT 96
--- NOTE | 2016-06-24 06:16 | NUR ---
backpain/headache pt did not want to get into bed last night. she says the bed hurts her back. she was offered to move from the chair to bed the several times but declined. pt slept in the chair comfortably all night. nurse attempted to keep pts feet elevated to prevent swelling. pt also complained of a "mild" headache and was given ultram, which she said helped. will continue to monitor.
[2016-06-24 06:23] VITALS: PULSE 66
[2016-06-24 07:09] LABS: Free Thyroxine Index 1.8 (1.2-4.9); Thyroxine (T4) 6.1 ug/dL (4.5-12.0)
[2016-06-24 07:44] VITALS: BP 148/78; PULSE 67; RESP 16; O2SAT 96
--- NOTE | 2016-06-24 11:52 | NUR ---
ACTIVITY Patient is alert and oriented X 4. Hard of hearing. Answers questions appropriately. BLE weakness. Denies pain. Tolerating liquids PO and her diet well. Denies nausea. No emesis noted. Patient was able to transfer in the room via a FWW with 1 PA. Tolerated it fairly. She has been using her call light appropriately. Does not attempt to get OOB without assistance.
--- NOTE | 2016-06-24 12:33 | PCM.DIMED ---
Discharge Instructions Date of Service Jun 24, 2016 Dates of Hospitalization Jun 22, 2016 at 16:54 Discharge Diagnosis Discharge Diagnosis 1. TIA 2.- Hyponatremia 3. Ventriculomegaly 4 . Back pain, chronic - Chronic issues: 1. Pneumonia x2 2. Recurrent UTIs, , 3. Asthma, 4. Hypertension, 5. Hyperlipidemia, 6. Hyponatremia (baseline 129), 7. Colovaginal fistula , 8. Benign cystadenoma left ovary, 9. Depression, 10. Nonhodkins lyumpohma 2005, 11. Hypothyroidism Test Results Head CT scan : 1. No acute intracranial abnormalities. 2. Cerebral volume loss and chronic microvascular ischemic changes. 3. Ventricular dilation is more pronounced than sulci dilation. Differential diagnoses include central atrophy versus normal pressure hydrocephalus. Carotid Doppler : Less than 50% stenosis of the bilateral internal carotid arteries Diet Low fat, Low Sodium Activity No restrictions Patient Instructions Follow up with primary care doctor within one week Follow-up with PCP in: 1 week Juan Ron MD Jun 24, 2016 12:33
[2016-06-24] MEDS ORDERED: TRAM-14 PO (12:35)
[2016-06-24] MEDS ORDERED: CLOP75TA28 PO (12:35)
--- NOTE | 2016-06-24 13:03 | DRSVH ---
PROCEDURE: CT ANGIO HEAD AND NECK (P) INDICATIONS: CVA TECHNIQUE: Pre-contrast 4.5 mm thick sections acquired from the foramen magnum to the vertex. After the adminis tration of intravenous contrast, 1 mm thick sections acquired from the aortic arch through the Elkins of [place]. Post-contrast 4.5 mm thick sections then re-acquired from the foramen magnum to the vert ex. 3-dimensional rlsdynd-[id number]-[id number] (MIP) and/or volume rendering reformats were acquired of the central intracranial vasculature and neck separately. For radiation dose reduction, the foll owing was used: automated exposure control, adjustment of mA and/or kV according to patient size. COMPARISON: [facility], CT, CT BRAIN WO CON, 06/22/2016, 15:08. FINDINGS: Image quality: Excellent. BRAIN: CSF spaces: Ventricles are normal in size and shape. Basal cisterns are patent. No extra-axial flu id collections. Brain: There is moderate cerebral volume loss. Severe periventricular white matter chronic small ves ayaka is lesions are present. No midline shift. No intracranial bleeds or masses. Crawford-white matter i nterface appears intact. Skull and face: Calvarium and facial bones appear intact, without suspicious lesions. Orbits appear normal. Sinuses: Sinuses and mastoids are clear. HEAD CT ANGIOGRAPHY: Anterior circulation: Intracranial internal carotid arteries are normal in size and flow. The flow within the paired anterior cerebral arteries is normal and symmetric. The flow within the middle cer ebral arteries is normal and symmetric. The anterior communicating artery is seen. No aneurysms are seen. Posterior circulation: Visualized portions of the vertebral arteries demonstrate normal caliber, and join to form a normal appearing basilar artery. Flow within the posterior cerebral arteries is norm al and symmetric. No aneurysms are seen. NECK CT ANGIOGRAPHY: Carotid system: The great vessels demonstrate a conventional anatomy as they arise from the aortic a rc. The origins of the common carotid arteries appear patent. There is mild calcification and focal narrowing at the right common card artery origin (<30%). No significant stenosis in the left common carotid artery. The common carotid arteries are tortuous but patent. There is moderate calcification at the right carotid bifurcation. There is 50% stenosis at the origin of the right internal carotid artery. There is mild narrowing (30%) at the left internal carotid artery origin. The distal interna l carotid arteries and skull base are suboptimally visualized into motion artifacts and osseous struc tures. Posterior circulation: The origins of the vertebral arteries both appear widely patent. The more lundberg perior extracranial portions of both vertebral arteries also demonstrate normal courses and calibers. They join to form a normal appearing basilar artery. Soft tissues: Visualized neck soft tissues demonstrate no suspicious abnormalities. Bones: No suspicious bony lesions. Visualized cervical spine appears normally aligned. IMPRESSION: 1. Suboptimal visualization of distal internal carotid arteries bilaterally due to motion artifacts. 2. 30% at rest common carotid artery origin and 50% stenosis at the right internal carotid artery jevon gin. 3. 30% stenosis at the left internal carotid artery origin. 4. Patent vertebral arteries bilaterally. 5. Moderate cerebral volume loss and severe periventricular white matter chronic small vessel ischemi c changes. Dictated by: Chata Fields M.D. on 06/24/2016 at 12:40 Transcribed by: AVIVA on 06/24/2016 at 13:03 Approved by: Chata Fields M.D. on 06/24/2016 at 19:42
--- NOTE | 2016-06-24 14:16 | NUR ---
Social Work: Discharge Data & Assessment: Nurse Reviewer was notified by patient's son that they toured SNF's and that they chose [facility] for the patient. SW gave [facility] access to the patient's chart and faxed FS. LEIGH spoke with Cassidy at [facility] who stated that the patient was accepted and transportation was scheduled. SW notified patient's son Tim and he stated that he would meet the patient at the hospital for discharge. Patient's paperwork and PASRR faxed to facility. SW will continue to follow and assist patient. Plan: Patient will discharge to [facility] via cabulence. SW will continue to follow. Hilda Tolbert LMSW, ELMER
--- NOTE | 2016-06-24 14:29 | NUR ---
DISCHARGE IV saline lock d/cd. Discharge report given to admit RN in [facility]. Discharged to [facility] via cabulance. Patients daughter has all her personal belongings.
--- NOTE | 2016-06-24 14:31 | DRSVH ---
[facility] [address] [place] [address] Echocardiogram Report Name: RAUL ONEAL LStudy Date: 06/09 Height: 66 in Hospital Exam Location: [facility] Weight: 241 lb Gender: Female BSA: 2.2 m2 : 1925 Age: 89 yrs BP: 145/83 mmHg Reason For Study: STROKE Ordering Physician: Performed By: Ciara Walker Referring Physician: Nemo MEYERS Interpretation Summary The left ventricle is normal in size, wall thickness, and systolic function without any focal wall motion abnormalities with the ejection fraction visually estimated to be 65-70%. Assessment of diastolic parameters indicates normal left ventricular diastolic function and normal filling pressures. The right ventricle is mildly dilated and right ventricular systolic function is at the lower limits of normal. There is mild pulmonary hypertension with the right ventricular systolic pressure estimated at 38 mmHg assuming a right atrial pressure of 3 mm Hg. Both atria are mildly dilated. There is mild to moderate tricuspid regurgitation but no other significant valvular heart disease. The ascending aorta is at the upper limits of normal in size. Procedure: A two-dimensional transthoracic echocardiogram with color flow and Doppler was performed. The study quality was technically adequate. There is no prior echocardiogram noted for this patient. The patient was in normal sinus rhythm during the exam. Left Ventricle: The left ventricle is normal in size, wall thickness, and systolic function without any focal wall motion abnormalities. The ejection fraction is estimated to be 65-70%. Spectral Doppler of the mitral valve shows a normal E/A wave ratio. Assessment of diastolic parameters indicates normal left ventricular diastolic function and normal filling pressures. Right Ventricle: The right ventricle is mildly dilated. Right ventricular systolic function is at the lower limits of normal. Atria: Both atria are mildly dilated. There is no Doppler evidence for an atrial septal defect. Mitral Valve: There is mild to moderate mitral annular calcification. The mitral valve leaflets are mildly calcified. The mitral valve leaflets appear mildly thickened, but open well. There is trace mitral regurgitation. Aortic Valve: The aortic valve is trileaflet. The aortic valve is mildly calcified. The aortic valve opens well. There is trace aortic regurgitation. Tricuspid Valve: The tricuspid valve leaflets are thin and pliable. There is mild to moderate tricuspid regurgitation. There is mild pulmonary hypertension. The right ventricular systolic pressure is estimated at 38 mmHg assuming a right atrial pressure of 3 mm Hg. Pulmonic Valve: The pulmonic valve leaflets are thin and pliable; valve motion is normal. There is a trace or physiologic amount of pulmonic regurgitation. There is no other significant valvular heart disease. Great Vessels: The aortic root is normal size. The ascending aorta is at the upper limits of normal in size. The pulmonary artery is normal size. The IVC is of normal diameter and collapses greater than 50% with a sniff. This suggests a low right atrial pressure of 3 mm Hg. Pericardium/ Pleura There is no pericardial effusion. There is no pleural effusion. MMode/2D Measurements & Calculations LVIDd: 4.5 cm LA dimension: 4.5 cm RA long axis LVOT diam LVIDs: 2.8 cm FS: 36.9 % LA A2 area: 23.5 cm RA area AoV Opening EPSS: 0.17 cm LA A4 area: 23.3 cm IVSd: 0.93 cm LA length (vol): 5.9 cm: 22.7 cm Ao root diam LVPWd: 1.0 cm LA vol: 78.5 ml RA vol LA vol index : 74.7 ml asc Aorta RA Diam: 3.4 cm : 34.5 mm/ IVC diam: 1.8 cm RVDd major : 5.4 cm LV baldwin. diameter/BSA LV sys. diameter/BSA RVD2 (mid) (cm/m^2): 2.1 (cm/m^2): 1.3 : 4.0 cm Doppler Measurements & Calculations Ao V2 max MV E max amos MV E/A: 1.1 TR max amos : 182.3 cm/sec : 94.0 cm/sec Med Peak E' Amos : 296.8 cm/sec Ao max PG MV A max amos TR max PG : 13.3 mmHg : 86.0 cm/sec E/E' med: 13.1 : 35.2 mmHg Ao mean PG MV P1/2t: 53.5 msec Lat Peak E' Amos PA V2 max : 128.6 cm/sec LVOT Max Amos E/E' lat: 11.8 PA mean PG : 117.3 cm/sec E/e' average: 12.5 ISIS(I,D): 2.1 cm Pulm A Revs Dur PA Accel Time sev ratio : 0.14 sec MV A dur: 0.15 sec MV dec time MV P1/2t max amos Ao V2 mean LV V1 max PG : 0.18 sec : 128.6 cm/sec Ao V2 VTI: 46.4 cm LV V1 VTI MVA(P1/2t): 4.1 cm2 : 30.3 cm ISIS(V,D): 2.0 cm2 PA V2 mean ISIS indexed to BSA Pulm Sayra Revs Dur - MV : 100.1 cm/sec (cm^2/m^2): 0.95 A Dur: 0.01 msec Reading Physician:02:30 PM
--- NOTE | 2016-06-24 14:49 | PCM.DC.MED ---
Discharge Summary Date of Service Jun 24, 2016 Dates of Hospitalization Date of Hospital Admission Jun 22, 2016 at 16:54 Date of Discharge: Jun 24, 2016 Providers: Admitting Physician: Inessa Martinez MD Primary Care Physician: Carey Martinez DO Attending Physician: Inessa Martinez MD Diagnosis at Time of Discharge Diagnosis at Time of Discharge 1. TIA 2.- Hyponatremia 3. Ventriculomegaly 4 . Back pain, chronic - Chronic issues: 1. Pneumonia x2 2. Recurrent UTIs, , 3. Asthma, 4. Hypertension, 5. Hyperlipidemia, 6. Hyponatremia (baseline 129), 7. Colovaginal fistula , 8. Benign cystadenoma left ovary, 9. Depression, 10. Nonhodkins lyumpohma 2006, 11. Hypothyroidism Consultations Physical therapy Procedures XRay, CTs & MRIs Head and neck Ct scan with contrast : 1. Suboptimal visualization of distal internal carotid arteries bilaterally due to motion artifacts and bony structures. 2. There is density present stenosis at the origin of the right common card artery and ~50% at the right carotid bifurcation. 3. 30% stenosis at the left internal carotid artery origin. 4. Patent vertebral arteries bilaterally. 5. Moderate cerebral volume loss and severe periventricular white matter chronic Brief History 89-year-old female brought in from [place] for left facial droop, slurred's speech, disorientation, shortness of breath that lasted for 20 minutes. Patient was started on amlodipine yesterday. She was discharged the day before , hospitalized June 12 through the for altered mental status due to klebsiella UTI and acute on chronic hyponatremia due to HCTZ. unknown if prn lasix was used since discharge. No more urinary incontinence than baseline, no change in ambulation. In the ER vital signs stable aspirin 324, CT head report indicating ventriculomegaly. In the aaron, left nasolabial fold less. Hospital Course Active issues and reason for admission 1.- TIA Vs CVA : Likely TIA , patient is at baseline from neurological standpoint Left facial droop and slurred speech resolved. -- Unable to obtain MRI due to obesity and anxiety. We will consider repeat CT scan of the head -- Continue statin, Plavix . Patient was previously on aspirin. -- PT evaluation and recommendation noted. Patient will need rehabilitation and discharge 2.- Hyponatremia, previous admission w/ low TSH Sodium 129. 3. 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 Back pain, chronic --tylenol prn Chronic issues known prior to admission, present on admission Pneumonia x2 Recurrent UTIs Asthma Hypertension Hyperlipidemia Hyponatremia (baseline 129) Colovaginal fistula Benign cystadenoma left voary Depression Nonhodkins lyumpohma 2006 Hypothyroidism Diet cardiac pending MOTORIZED SQUAD CAPTAIN DVT prophylaxis lovenox ambulate Code full Stable from neurological standpoint. CT head shows no CVA . Patient is discharge to rehab in stable condition Exam Vital Signs (Last) Date Time Temp Pulse Resp B/P Pulse Ox O2 Delivery O2 Flow Rate FiO2 06/24/16 14:20 Room Air 06/24/16 07:44 37.0 67 16 148/78 96 Exam General: No acute distress. sitting in chair comfortably HEENT: PERRL . Sclerae is anicteric Mouth : Moist oropharyngeal mucosae.No oral thrush Neck: supple, trachea is midline , no JVD Chest:clear to auscultation and percussion. There are no rales, rhonchi, wheezes or rubs. Heart: S1, S2 regular Rate, rhythm is regular. There is no murmur, rub or gallop. Abdomen: Soft, non-tender, non-distended. Normal bowel sounds on quadrant Extremities: No edema, no cyanosis Neurologic: Grossly non focal. Test 06/22/16 16:10 06/22/16 21:40 06/23/16 00:30 06/23/16 06:18 White Blood Count 5.4th/mm3 (3.8-10.1) Red Blood Count 4.08mil/mm3 (3.90-5.20) Hemoglobin 12.4g/dL (12.0-15.6) Hematocrit 37.7% (35.0-46.0) Mean Corpuscular Volume 92.4fL (81-100) Mean Corpuscular Hemoglobin 30.4pg (27.0-35.0) Mean Corpuscular Hemoglobin Concent 32.9% (32.0-37.0) Red Cell Distribution Width 12.9% (12.3-15.4) Platelet Count 239bil/L (150-400) Neutrophils (%) (Auto) 55.5% (40-74) Lymphocytes (%) (Auto) 33.3% (14-46) Monocytes (%) (Auto) 8.7% (4-12) Eosinophils (%) (Auto) 1.7% (0-5) Basophils (%) (Auto) 0.6% (0-3) Total Bilirubin 0.6mg/dL (0.0-1.2) Aspartate Amino Transf (AST/SGOT) 26U/L (0-50) Alanine Aminotransferase (ALT/SGPT) 25U/L (0-32) Alkaline Phosphatase 45U/L (25-165) Total Protein 7.8g/dL (6.4-8.4) Albumin 4.2g/dL (3.4-5.0) Troponin T 0.010ug/L (0.0-0.011) Triglycerides Level 156mg/dL (0-149) Cholesterol Level 127mg/dL (100-199) LDL Cholesterol, Calculated 46.800mg/dL (0-99) VLDL Cholesterol 31.200mg/dL HDL Cholesterol 49mg/dL (>39) Cholesterol/HDL Ratio 2.59 (0.0-4.4) Thyroid Stimulating Hormone (TSH) 7.020uIU/mL (0.450-4.500) Free Thyroxine Index 1.8 (1.2-4.9) Thyroxine (T4) 6.1ug/dL (4.5-12.0) Triiodothyronine (T3) Uptake 30% (24-39) Urine Color Yellow (YELLOW) Urine Appearance Hazy (CLEAR,HAZY) Urine pH 7.0 (5.0-8.0) Urine Specific [place] 1.010 (1.003-1.035) Urine Protein Negativemg/dL (NEG,TRACE) Urine Glucose (UA) Negativemg/dL (NEGATIVE) Urine Ketones Negativemg/dL (NEGATIVE) Urine Occult Blood Negative (NEGATIVE) Urine Nitrite Negative (NEGATIVE) Urine Bilirubin Negative (NEGATIVE) Urine Urobilinogen Normalmg/dL (NORMAL) Urine Leukocyte Esterase Negative (NEGATIVE) Urine RBC 0-2/hpf (0-2) Urine WBC 0-5/hpf (0-5) Urine Epithelial Cells Many/hpf (NONE-MOD) Urine Crystals None seen (NONE SEEN) Urine Bacteria Few/hpf (NONE-FEW) Urine Hyaline Casts None/lpf (NONE) Urine Granular Casts None seen (NONE SEEN) Urine Waxy Casts None seen (NONE SEEN) Urine Red Blood Cell Casts None seen (NONE SEEN) Urine White Blood Cell Casts None seen (NONE SEEN) Urine Mucus None seen (None Seen) Urine Trichomonas None seen (NONE SEEN) Urine Yeast None (NONE SEEN) Urinalysis Comment None Urine Culture Reflexed Not indicated Urine Random Creatinine 44mg/dL (15-278) Urine Random Sodium 81mEq/L Sodium Level 129mEq/L (134-144) Potassium Level 4.8mEq/L (3.5-5.2) Chloride Level 90mEq/L (97-108) Carbon Dioxide Level 22mmol/L (18-29) Blood Urea Nitrogen 12mg/dL (8-27) Creatinine 0.69mg/dL (0.57-1.00) Estimat Glomerular Filtration Rate 115mL/min (>59) Glucose Level 114mg/dL (60-99) Calcium Level 9.8mg/dL (8.5-10.1) Cortisol 17.0ug/dL (.) Discharge Medications Discharge Medications Amlodipine (Amlodipine) 5 Mg Tablet 5 MG PO DAILY Prescribed by: OSMIN LOZANO MD Aspirin (Aspirin) 81 Mg Tablet 81 MG PO DAILY (Reported) Atenolol (Atenolol) 50 Mg Tablet 50 MG PO DAILY (Reported) Atorvastatin (Lipitor) 20 Mg Tablet 20 MG PO DAILY (Reported) Clopidogrel (Clopidogrel) 75 Mg Tablet 75 MG PO DAILY Prescribed by: NIA RON MD Levothyroxine (Levothyroxine) 150 Mcg Tablet 150 MCG PO DAILY (Reported) Losartan Potassium (Losartan Potassium) 50 Mg Tablet 50 MG PO DAILY (Reported) As needed Furosemide (Furosemide) 20 Mg Tab 20 MG PO DAILY PRN PRN edema (Reported) Tramadol (Ultram) 50 Mg Tablet 50 MG PO Q8H PRN PRN For Mild Pain Prescribed by: NIA RON MD Followup Plan Disposition: Skilled rehab Discharge Diet: Low fat, Low Sodium Discharge Activity: No restrictions Patient Instructions Follow up with primary care doctor within one week Follow-up with PCP in: 1 week Time spent 35 minutes Nia Ron MD Jun 24, 2016 14:49
== END 2016-06-24 14:12 ==
LOC: SED 14:10 → EDBD 14:10 → OSC 16:54
PROVIDERS: ADMIT Urology; ATTEND Urology
DX: G45.9 Transient cerebral ischemic attack, unspecified (principal); G93.89 Other specified disorders of brain; R29.810 Facial weakness; I10 Essential (primary) hypertension; E78.5 Hyperlipidemia, unspecified; E87.1 Hypo-osmolality and hyponatremia; J45.909 Unspecified asthma, uncomplicated; F32.9 Major depressive disorder, single episode, unspecified; E03.9 Hypothyroidism, unspecified; C85.90 Non-Hodgkin lymphoma, unspecified, unspecified site; M54.9 Dorsalgia, unspecified; Z79.82 Long term (current) use of aspirin; Z79.899 Other long term (current) drug therapy
CPT/HCPCS: 36415; 70450; 70496; 70498; 80048; 80053; 80061; 81000; 82533; 82570; 84300; 84436; 84443; 84479; 84484; 85025; 92610; 93005; 93880; 97110; 97162; 97530; 99285; C8929; G0378; G8978; G8979; G8996; G8997; G8998; J1650; J7030; Q9967

== ENCOUNTER 2016-09-06 08:58 | Emergency (ER) | payer MEDICARE ==
[~2016-09-06] VITALS: Ht 167.6 cm; Wt 109.1 kg
[~2016-09-06 08:58] MED LIST changes: +CLOP75TA28 PO; +TRAM-14 PO
[2016-09-06 09:08] VITALS: BP 133/45; PULSE 72; RESP 15; O2SAT 91
--- NOTE | 2016-09-06 09:11 | ED.REPORT ---
HPI-Trauma Minor / Fall Date of Service Sep 06, 2016 ED Provider: Jerry Henriquez MD Patient is an 89 year old female with a history of stroke, dementia and hypertension who presents to the ED via EMS due to a fall. She reports having a "bump" on the back of her head. Patient denies losing consciousness, feeling lightheaded, chest pain, shortness of breath, neck pain, back pain, fever, chills, abdominal pain, weakness on one side, vision changes, palpitations, bowel dysfunction or urinary problems. Patient states that she was reaching for her hearing aid and fell out of her recliner. She is currently on Plavix. Nursing Notes Stated Complaint: HEAD INJURY Chief Complaint: Multiple Trauma/Fall Nursing Notes Reviewed: Yes Allergies: Coded Allergies: Penicillins (Verified Allergy, Unknown, 09/06/16) Uncoded Allergies: BEES (Allergy, Severe, WELTS AND SWOLLEN LIPS, 06/12/16) Scheduled Amlodipine (Amlodipine) 5 Mg Tablet 5 MG PO DAILY Aspirin (Aspirin) 81 Mg Tablet 81 MG PO DAILY Atenolol (Atenolol) 50 Mg Tablet 50 MG PO DAILY Atorvastatin (Lipitor) 20 Mg Tablet 20 MG PO DAILY Ciprofloxacin (Cipro) 250 Mg Tablet 250 MG PO BID Clopidogrel (Clopidogrel) 75 Mg Tablet 75 MG PO DAILY Levothyroxine (Levothyroxine) 150 Mcg Tablet 150 MCG PO DAILY Losartan Potassium (Losartan Potassium) 50 Mg Tablet 50 MG PO DAILY Scheduled PRN Furosemide (Furosemide) 20 Mg Tab 20 MG PO DAILY PRN PRN edema Tramadol (Ultram) 50 Mg Tablet 50 MG PO Q8H PRN PRN For Mild Pain General Time Seen by MD: 09:10 Chief Complaint Fall Hx Obtained From: Patient Arrived By: Ambulance Onset Occurred: Just prior to arrival Caused by: Fall on ground Severity: Current: No pain currently Recent Healthcare: Recent doctor visit, Recent hospitalization Similar Sx Previous: Yes Past Medical History Past Medical History PNAx2 stroke dementia Reports: Asthma, Hypertension Past Surgical History KELSEY. BSO. Family History Noncontributory Smoking History Never Smoker Social History Lives at [facility]. Other Social History: Good social support, , Local resident Ambulatory Status Walker Review of Systems Constitutional: Denies: Chills, Fever Respiratory: Denies: Non-productive cough, Shortness of breath Musculoskeletal: Denies: Back pain, Neck pain Neurologic: Denies: Bladder dysfunction, Bowel dysfunction, Change LOC, Lightheaded, Numbness, Vision change, Weakness Complete sys rev & neg: except as marked. Cardiovascular: Denies: Chest pain, Palpitations GI: Denies: Abdominal pain Female: Denies: Dysuria, Incontinence Physical Exam Physical Exam Notes: Constitutional: Well-developed, well-nourished. Not diaphoretic. Head: Normocephalic and atraumatic. Do not appreciate signs of trauma, hematoma or ecchymosis to scalp. Mouth/Throat: Oropharynx is clear and moist. No oropharyngeal exudate. Eyes: EOM are normal. Pupils are equal, round, and reactive to light. Neck: Supple, no tracheal deviation. Cardiovascular: Normal rate, regular rhythm. Equal and intact distal pulses throughout. Pulmonary/Chest: Effort normal and breath sounds normal. No respiratory distress. Musculoskeletal: Range of motion grossly intact, moving all extremities. Trace edema bilateral lower extremities. Neurological: AOx3. Grossly nonfocal exam. Strength and sensation intact and equal to bilateral upper and lower extremities. Normal finger to nose testing. No facial droop. Skin: Warm and dry, no rashes or pallor appreciated. Psychiatric: Appropriate mood and affect. Behavior appears normal. Initial Vital Signs Vital Signs (First) Date Time Temp Pulse Resp B/P Pulse Ox O2 Delivery O2 Flow Rate FiO2 09/06/16 09:08 36.3 72 15 133/45 91 Room Air Initial VS: Reviewed Interpretation & Diagnostics Lab Results Interpretation Result Diagram: 09/06/16 1104 09/06/16 1104 Test 09/06/16 11:04 09/06/16 12:11 White Blood Count 4.7th/mm3 (3.8-10.1) Red Blood Count 3.77mil/mm3 (3.90-5.20) Hemoglobin 11.2g/dL (12.0-15.6) Hematocrit 33.8% (35.0-46.0) Mean Corpuscular Volume 89.7fL (81-100) Mean Corpuscular Hemoglobin 29.7pg (27.0-35.0) Mean Corpuscular Hemoglobin Concent 33.1% (32.0-37.0) Red Cell Distribution Width 13.1% (12.3-15.4) Platelet Count 218bil/L (150-400) Neutrophils (%) (Auto) 65.1% (40-74) Lymphocytes (%) (Auto) 23.0% (14-46) Monocytes (%) (Auto) 10.9% (4-12) Eosinophils (%) (Auto) 0.6% (0-5) Basophils (%) (Auto) 0.2% (0-3) Prothrombin Time 11.4sec (8.1-12.5) Prothromb Time International Ratio 1.06ratio Activated Partial Thromboplast Time 28.9sec (22.8-33.0) Sodium Level 132mEq/L (134-144) Potassium Level 4.5mEq/L (3.5-5.2) Chloride Level 94mEq/L (97-108) Carbon Dioxide Level 23mmol/L (18-29) Blood Urea Nitrogen 14mg/dL (8-27) Creatinine 0.71mg/dL (0.57-1.00) Estimat Glomerular Filtration Rate 111mL/min (>59) Glucose Level 119mg/dL (60-99) Calcium Level 9.6mg/dL (8.5-10.1) Magnesium Level 1.6mg/dL (1.6-2.6) Total Bilirubin 0.4mg/dL (0.0-1.2) Aspartate Amino Transf (AST/SGOT) 14U/L (0-50) Alanine Aminotransferase (ALT/SGPT) 10U/L (0-32) Alkaline Phosphatase 58U/L (25-165) Troponin T < 0.010ug/L (0.0-0.011) Total Protein 7.3g/dL (6.4-8.4) Albumin 3.5g/dL (3.4-5.0) Lipase 35U/L (13-60) Alcohols < 10mg/dL (0-10) Urine Color Straw (YELLOW) Urine Appearance Cloudy (CLEAR,HAZY) Urine pH 7.0 (5.0-8.0) Urine Specific [place] 1.005 (1.003-1.035) Urine Protein Negativemg/dL (NEG,TRACE) Urine Glucose (UA) Negativemg/dL (NEGATIVE) Urine Ketones Negativemg/dL (NEGATIVE) Urine Occult Blood Small (NEGATIVE) Urine Nitrite Positive (NEGATIVE) Urine Bilirubin Negative (NEGATIVE) Urine Urobilinogen Normalmg/dL (NORMAL) Urine Leukocyte Esterase Large (NEGATIVE) Urine RBC 0-2/hpf (0-2) Urine WBC 6-10/hpf (0-5) Urine Epithelial Cells Few/hpf (NONE-MOD) Urine Crystals None seen (NONE SEEN) Urine Bacteria Many/hpf (NONE-FEW) Urine Hyaline Casts None/lpf (NONE) Urine Granular Casts None seen (NONE SEEN) Urine Waxy Casts None seen (NONE SEEN) Urine Red Blood Cell Casts None seen (NONE SEEN) Urine White Blood Cell Casts None seen (NONE SEEN) Urine Mucus None seen (None Seen) Urine Trichomonas None seen (NONE SEEN) Urine Yeast None (NONE SEEN) Urinalysis Comment None ECG Interpretation ECG Interpretation: atrial premature complex prolonged GA interval Time: 09:45 Interpreted by: ED physician Normal ECG Interpretation: Normal rate (68), Normal sinus rhythm X-Ray Chest Interpretation Chest Xray Interpretation: IMPRESSION: 1. Increasing patchy opacities in the lung bases are nonspecific and the differential includes atelectasis, pulmonary contusions, or aspiration among other etiologies. Dictated by: Ottoniel Arias M.D. on 09/06/2016 at 10:16 Approved by: Ottoniel Arias M.D. on 09/06/2016 at 10:17 View: Portable, 1 view Interpretation / Wet Read by: Interpret - Radiologist X-Ray Interpretation Xray Interpretation: IMPRESSION: 1. No fracture or dislocation. Dictated by: Ottoniel Arias M.D. on 09/06/2016 at 10:17 Approved by: Ottoniel Arias M.D. on 09/06/2016 at 10:18 X-Ray Ordered: Pelvis Interpretation / Wet Read by: Interpret - Radiologist CT Head Interpretation IMPRESSION: No acute intracranial disease process. Dictated by: Prerna Pickens MD, PhD on 09/06/2016 at 10:33 Approved by: Prerna Pickens MD, PhD on 09/06/2016 at 11:00 Interpretation / Wet Read by: Interpret - Radiologist CT C-Spine Interpretation IMPRESSION: 1. No acute fracture of the cervical spine. 2. Advanced degenerative changes of the cervical spine. Dictated by: Nikolay Kimbrough M.D. on 09/06/2016 at 10:02 Approved by: Nikolay Kimbrough M.D. on 09/06/2016 at 10:15 Interpretation / Wet Read by: Interpret - Radiologist Re-Eval/Medical Decision Med Decision/Clinical Course 89-year-old female presenting to the ED for evaluation after a clear mechanical fall earlier today. She had no preceding symptoms, including no lightheadedness , no chest pain, no fever, no palpitations, nor other complaints since then. She is well-appearing. No complaint at this time. Laboratory studies relatively unremarkable, stable from previous, with no abnormality that would account for her fall. Hgb stable; Na 132, higher than previous. Her UA does seem consistent with a possible UTI, however she has no symptoms and mechanism described still mechanical; I do not feel that this is responsible for her fall. Chest x-ray with nonspecific findings; patient does not have a fever, shortness of breath, cough, or other findings that would make me concerned for pneumonia at this time. Discussed with the patient. Upon reassessment, patient continues to endorse no symptoms and would like to be discharged home. Given clear mechanical etiology, no other complaints, and a reassuring workup here, it seems reasonable to discharge the patient home with very careful return precautions, PCP follow-up, and antibiotics for her UTI. In a nursing facility that can watch her. Patient agreeable to the plan as stated, no further questions. Re-Evaluation/Progress : Time of Eval: 12:08 Re-Evaluation/Progress Note: Discussed results and plan for discharge. Patient understands and agrees to plan. All questions were addressed. Counseled Regarding: Diagnosis, Lab results, Need for follow-up, When/why to return to ED Discharge & Departure Impression: Primary Impression: Fall Encounter type: initial encounter Qualified Code: W19.XXXA - Unspecified fall, initial encounter Additional Impressions: Blunt head injury Encounter type: initial encounter Qualified Code: S09.8XXA - Other specified injuries of head, initial encounter UTI (urinary tract infection) Urinary tract infection type: site unspecified Hematuria presence: without hematuria Qualified Code: N39.0 - Urinary tract infection, site not specified Disposition: Home Discharge Condition All VS Reviewed: Yes Condition: Stable Patient Instructions: Fall Prevention for Older Adults (ED), Urinary Tract Infection in Women (ED) Additional Instructions: Your CT was normal and reassuring. Your labs showed that you have an urinary tract infection Take the antibiotic, Cipro 2x a day for 3 days. You can take ibuprofen as needed for pain. Follow up with your primary care physician next week. Return to the emergency department if you develop any new or concerning symptoms including chest pain, shortness of breath, fever, numbness or weakness. Referrals: Carey Martinez DO (PCP) Naveedibyaya Attestation Portions of this note were transcribed by Monica Garza. I, Dr. Henriquez personally performed the history, physical exam and medical decision-making; I reviewed and confirmed the accuracy of the information in the transcribed note. Signed by: Aly Diamond, 09/06/16 and 1210. copies to: Carey Martinez William B MD Sep 06, 2016 09:11 Karine Garza Sep 06, 2016 09:23
--- NOTE | 2016-09-06 10:19 | DRSVH ---
PROCEDURE: X-RAY PELVIS, ONE OR TWO VIEWS ([id number]) INDICATIONS: trauma TECHNIQUE: Single view of the pelvis acquired. COMPARISON: None. FINDINGS: Bones: No fractures or dislocations. There is degenerative disc disease and facet arthropathy withi n the visualized lower lumbar spine. No suspicious bony lesions. Soft tissues: Visualized bowel gas pattern is normal. No suspicious soft tissue calcifications. IMPRESSION: 1. No fracture or dislocation. Dictated by: Ottoniel Arias M.D. on 09/06/2016 at 10:17 Approved by: Ottoniel Arias M.D. on 09/06/2016 at 10:18
--- NOTE | 2016-09-06 10:19 | DRSVH ---
PROCEDURE: X-RAY CHEST ONE VIEW, PORTABLE ([id number]) INDICATIONS: trauma TECHNIQUE: One view of the chest was acquired. COMPARISON: [facility], CR, XR CHEST 1VW (PORTABLE), 06/12/2016, 23:09. FINDINGS: Surgical changes and devices: None. Lungs and pleura: No pleural effusions or pneumothorax. There are indistinct patchy opacities in th e lung bases. Mediastinum: Mediastinal contours appear unchanged. Heart size is within normal limits. Bones and chest wall: No displaced fractures identified. Overlying soft tissues appear unremarkable. IMPRESSION: 1. Increasing patchy opacities in the lung bases are nonspecific and the differential includes atele ctasis, pulmonary contusions, or aspiration among other etiologies. Dictated by: Ottoniel Arias M.D. on 09/06/2016 at 10:16 Approved by: Ottoniel Arias M.D. on 09/06/2016 at 10:17
--- NOTE | 2016-09-06 11:02 | DRSVH ---
PROCEDURE: CT BRAIN WITHOUT CONTRAST ([id number]) INDICATIONS: trauma TECHNIQUE: Noncontrast 4.5 mm thick angled axial sections acquired from the foramen magnum to the vertex, with c oronal reformats. COMPARISON: None. FINDINGS: Image quality: Excellent. CSF spaces: Basal cisterns are patent. No extra-axial fluid collections. The ventricles are symmet chalo in size and shape. Brain: No intracranial bleeds or masses. There is cerebral volume loss for age, with resultant vent ricular and sulcal prominence. There are periventricular and deep white matter chronic small vessel ischemic changes. There is intracranial internal carotid artery and vertebral artery atherosclerosis . Skull and face: Calvarium and visualized facial bones appear intact, without suspicious lesions. Sinuses: Visualized sinuses and mastoids are clear. IMPRESSION: No acute intracranial disease process. Dictated by: Prerna Pickens MD, PhD on 09/06/2016 at 10:33 Approved by: Prerna Pickens MD, PhD on 09/06/2016 at 11:00
[2016-09-06 11:08] LABS: BASOPHILS % (AUTO) 0.2 % (0-3); EOSINOPHILS % (AUTO) 0.6 % (0-5); MONOCYTES % (AUTO) 10.9 % (4-12); Mean Corpuscular Hemoglobin 29.7 pg (27.0-35.0); Mean Corpuscular Volume 89.7 fL (81-100); NEUTROPHILS % (AUTO) 65.1 % (40-74); Platelet Count 218 bil/L (150-400)
--- NOTE | 2016-09-06 11:16 | DRSVH ---
PROCEDURE: CT CERVICAL SPINE WITHOUT CONTRAST ([id number]) INDICATIONS: trauma TECHNIQUE: Noncontrast 3 mm thick sections acquired from the skull base to the T4 level. Sagittal and coronal r eformats were then constructed. For radiation dose reduction, the following was used: automated exp osure control, adjustment of mA and/or kV according to patient size. COMPARISON: None. FINDINGS: Image quality: Diagnostic. Bones: The craniocervical and atlantoaxial joints are well-maintained. The odontoid is intact. The vertebral body heights and prevertebral soft tissues are within normal limits throughout the cervical spine without evidence to suggest acute compression fracture. No other fractures are evident within the cervical spine. The bone mineralization is within normal limits. Severe multilevel degenerative changes of the cervical spine are present demonstrating multilevel dis c height loss, posterior disc osteophyte complexes, and advanced facet arthropathy. The findings are slightly more prominent at the level of the C4-5. Multifocal areas of bony central canal or neural foraminal narrowing are present. Heterogeneous ossific/calcific densities along the posterior margin s of the C6 and C7 spinous processes is present, probably related to chronic ligamentous injury. Soft tissues: No prevertebral soft tissue swelling. The imaged lung apices are clear. Imaged porti ons of the mediastinum are unremarkable. Otherwise, the remainder of the imaged soft tissues of the neck are within normal limits. IMPRESSION: 1. No acute fracture of the cervical spine. 2. Advanced degenerative changes of the cervical spine. Dictated by: Nikolay Kimbrough M.D. on 09/06/2016 at 10:02 Approved by: Nikolay Kimbrough M.D. on 09/06/2016 at 10:15
[2016-09-06 11:31] LABS: INR 1.06 ratio
[2016-09-06 11:39] LABS: TROPONIN T < 0.010 ug/L (0.0-0.011)
[2016-09-06 11:49] LABS: Magnesium 1.6 mg/dL (1.6-2.6)
[2016-09-06 11:54] VITALS: BP 123/76; RESP 18; O2SAT 96
[2016-09-06 12:08] LABS: Lipase 35 U/L (13-60)
[2016-09-06 12:27] LABS: APPEARANCE,URINE CLOUDY (CLEAR,HAZY); COLOR,URINE STRAW (YELLOW); OCCULT BLOOD,URINE SMALL (NEGATIVE); UROBILINOGEN,URINE NORMAL (NORMAL)
[2016-09-06] MEDS ORDERED: CIPR-232 PO (12:36)
[2016-09-06 13:20] VITALS: PULSE 68; RESP 16; O2SAT 96
== END 2016-09-06 13:20 | disposition home or self-care (01) ==
LOC: EDUNIT# 08:58 → EDSEX 08:58 → EDBD 08:58 → SED 08:58
DX: S09.8XXA Other specified injuries of head, initial encounter (principal); W18.39XA Other fall on same level, initial encounter; Y93.89 Activity, other specified; Y92.89 Other specified places as the place of occurrence of the external cause; Y99.8 Other external cause status; N39.0 Urinary tract infection, site not specified; B96.1 Klebsiella pneumoniae [K. pneumoniae] as the cause of diseases classified elsewhere; J45.909 Unspecified asthma, uncomplicated; I10 Essential (primary) hypertension; F03.90 Unspecified dementia, unspecified severity, without behavioral disturbance, psychotic disturbance, mood disturbance, and anxiety; Z87.01 Personal history of pneumonia (recurrent); Z86.73 Personal history of transient ischemic attack (TIA), and cerebral infarction without residual deficits; Z79.82 Long term (current) use of aspirin; Z88.0 Allergy status to penicillin
CPT/HCPCS: 36415; 70450; 71010; 72125; 72170; 80053; 81001; 83690; 83735; 84484; 85025; 85610; 85730; 86850; 87077; 87086; 87088; 87186; 93005; 99285; G0480